=== PATIENT | female | born 2000 | race Caucasian/White ===

== ENCOUNTER 2020-10-28 07:33 | Emergency (ER) | payer OTHER, SELFPAY ==
[2020-10-28 08:24] LABS: Absolute Lymphocytes (CBC) 1.1 K/uL (0.7-4.9); Basophils % 0.3 % (0-1.3); Hematocrit 38.7 % (36.0-45.0); Lymphocytes % 19.7 % (15.3-44.8); MPV 10.2 fL (7.6-11.3); RBC Red Blood Cell Count 4.47 M/uL (3.86-4.86)
[2020-10-28 08:27] LABS: Urine Blood Negative (Negative); Urine Glucose Negative (Negative); Urine Protein Negative (Negative); Urine pH 7.5 (5.0-7.0)
[2020-10-28] MEDS ORDERED: NA CHLORIDE 0.9% 1,000 ML ONE (08:34)
[2020-10-28] MEDS ORDERED: LIDOCAINE VISCOUS 2% SOLN 15 ML UDC ONE (08:35)
[2020-10-28] MEDS ORDERED: MAGNES/ALUMIN/SIMET 30ML UCUP ONE (08:35)
[2020-10-28 08:53] LABS: BUN Blood Urea Nitrogen 13 mg/dL (7-18); Bicarbonate 25 mmol/L (21-32); Glucose Level 102 mg/dL (74-106); Potassium 4.4 mmol/L (3.5-5.1); Sodium Level 141 mmol/L (136-145); Troponin (Emerg Dept Use Only) < 0.02 ng/mL (0.0-0.045)
[2020-10-28] MEDS ORDERED: KETOROLAC 30 MG/ML INJ ONE (10:06)
--- NOTE | 2020-10-28 10:10 | RAD REPORT ---
EXAM DESCRIPTION: US - Abdomen Exam Limited - 10/28/2020 9:36 am CLINICAL HISTORY: RUQ abd pain COMPARISON: Abdomen Exam Limited dated 06/18/2017 FINDINGS: A 12 millimeter size gallstone is present remaining fixed at the neck of the gallbladder. No other stones or sludge seen. There is no wall thickening or pericholecystic fluid. No common duct stone or biliary tree dilatation identified. IMPRESSION: A 12 millimeter gallstone is present remaining fixed in the neck of the gallbladder. No other gallbladder or biliary tree finding.
--- NOTE | 2020-10-28 10:28 | EDPHYS ---
Physician Documentation [facility] Name: Susana Agarwal Age: 20 yrs Sex: Female : 2000 Arrival Date: 10/28/2020 Time: 07:37 Bed 8 Private MD: ED Physician Elaine Chaudhari HPI: 10/28 08:39 This 20 yrs old Female presents to ER via Ambulatory with complaints of Chest ma2 Pressure. 08:39 The patient or guardian reports chest pain that is located primarily in the anterior ma2 chest wall. Associated signs and symptoms: Pertinent negatives: diaphoresis, headache, lower extremity swelling. Severity of pain: At its worst the pain was mild in the emergency department the pain is unchanged. The patient has experienced similar episodes in the past. Historical: - Allergies: 07:56 Iodine; hb 07:57 No Known Allergies; ss - Home Meds: 07:57 None [Active]; ss - PMHx: 07:57 None; ss - PSHx: 07:56 eye surgery; hb 07:57 eye surgery x 4; ; ss - Immunization history:: Adult Immunizations up to date, Adult Immunizations up to date. - Social history:: Smoking status: Patient denies any tobacco usage or history of. - Family history:: not pertinent. ROS: 08:39 Constitutional: Negative for fever, chills, and weight loss. ma2 08:39 All other systems are negative. Exam: 08:39 Constitutional: This is a well developed, well nourished patient who is awake, alert, ma2 and in no acute distress. Chest/axilla: Normal chest wall appearance and motion. Nontender with no deformity. No lesions are appreciated. Cardiovascular: Regular rate and rhythm with a normal S1 and S2. No gallops, murmurs, or rubs. Normal PMI, no JVD. No pulse deficits. Respiratory: Lungs have equal breath sounds bilaterally, clear to auscultation and percussion. No rales, rhonchi or wheezes noted. No increased work of breathing, no retractions or nasal flaring. Abdomen/GI: Soft, non-tender, with normal bowel sounds. No distension or tympany. No guarding or rebound. No evidence of tenderness throughout. Back: No spinal tenderness. No costovertebral tenderness. Full range of motion. Skin: Warm, dry with normal turgor. Normal color with no rashes, no lesions, and no evidence of cellulitis. MS/ Extremity: Pulses equal, no cyanosis. Neurovascular intact. Full, normal range of motion. Neuro: Awake and alert, GCS 15, oriented to person, place, time, and situation. Cranial nerves II-XII grossly intact. Motor strength 5/5 in all extremities. Sensory grossly intact. Cerebellar exam normal. Normal gait. Vital Signs: 07:53 BP 116 / 67; Pulse 74; Resp 16; Temp 97.7(TE); Pulse Ox 98% on R/A; Pain 5/10; ss 08:04 BP 118 / 78 RA Sitting (auto/lg); Pulse 70; Resp 18; Pulse Ox 97% on R/A; tr6 08:04 BP 116 / 67 LA (auto/lg); tr6 09:51 BP 120 / 79; Pulse 56; Resp 18; Pulse Ox 100% on R/A; tr6 MDM: 07:44 Patient medically screened. ma2 08:39 Differential diagnosis: esophagitis, gastritis, gastroesophageal reflux disease (GERD), ma2 pancreatitis. 10:27 Data reviewed: vital signs, nurses notes. Counseling: I had a detailed discussion with ma2 the patient and/or guardian regarding: the historical points, exam findings, and any diagnostic results supporting the discharge/admit diagnosis, the presence of at least one elevated blood pressure reading (>120/80) during this emergency department visit, the need for outpatient follow up. 10/28 08:13 Order name: Basic Metabolic Panel; Complete Time: 09:21 [facility] 10/28 08:13 Order name: CBC with Diff; Complete Time: 08:45 [facility] 10/28 08:13 Order name: Troponin (emerg Dept Use Only); Complete Time: 09:21 [facility] 10/28 08:16 Order name: US Abdomen Limited; Complete Time: 10:26 [facility] 10/28 08:27 Order name: Urine Dipstick-Ancillary; Complete Time: 08:45 [facility] 10/28 08:33 Order name: Urine --Ancillary (enter results) bd 10/28 07:40 Order name: Urine Test (obtain specimen); Complete Time: 08:20 [facility] 10/28 07:40 Order name: Urine Dipstick-Ancillary (obtain specimen); Complete Time: 08:19 ma2 10/28 07:40 Order name: EKG - Nurse/Tech; Complete Time: 08:01 ma2 Administered Medications: 08:16 Drug: GI Cocktail without - (Maalox Suspension 30 ml, Lidocaine Liquid 2 % 15 tr6 ml) Route: PO; 08:42 Follow up: Response: Pain is unchanged, physician notified tr6 09:50 Drug: Ketorolac 30 mg Route: IVP; Site: right antecubital; tr6 11:31 Follow up: Response: Pain is unchanged, physician notified tr6 11:31 Not Given (Patient Refused): Ativan (LORazepam) 0.5 mg IVP once tr6 Disposition: 10/28/20 10:27 Discharged to Home. Impression: Cholelithiasis. - Condition is Stable. - Discharge Instructions: Cholelithiasis, [id number]. - Prescriptions for Diclofenac Sodium 75 mg Oral Tablet Sustained Release - take 1 tablet by ORAL route 2 times per day; 30 tablet. Zofran 4 mg Oral Tablet - take 1 tablet by ORAL route every 12 hours As needed; 20 tablet. Pepcid 20 mg Oral Tablet - take 1 tablet by ORAL route every 12 hours for 5 days; 10 tablet. - Medication Reconciliation Form, Thank You Letter, Antibiotic Education, Prescription Opioid Use form. - Follow up: Tu Salter; When: Tomorrow; Reason: If symptoms return, Continuance of care. Signatures: Dispatcher [facility] Jazmyne Baeza RN RN Shannen Cee RN RN Elaine Chaudhari MD MD [facility] Antonette Owen RN RN tr6 Corrections: (The following items were deleted from the chart) 11:34 10:27 10/28/2020 10:27 Discharged to Home. Impression: Cholelithiasis. Condition is tr6 Stable. Discharge Instructions: Cholelithiasis, [id number]. Prescriptions for Diclofenac Sodium 75 mg Oral Tablet Sustained Release - take 1 tablet by ORAL route 2 times per day; 30 tablet, Zofran 4 mg Oral Tablet - take 1 tablet by ORAL route every 12 hours As needed; 20 tablet, Pepcid 20 mg Oral Tablet - take 1 tablet by ORAL route every 12 hours for 5 days; 10 tablet. and Forms are Medication Reconciliation Form, Thank You Letter, Antibiotic Education, Prescription Opioid Use. Follow up: Tu Salter; When: Tomorrow; Reason: If symptoms return, Continuance of care. ma2
--- NOTE | 2020-10-28 10:28 | ER ---
Nurse's Notes [facility] Name: Susana Agarwal Age: 20 yrs Sex: Female : 2000 Arrival Date: 10/28/2020 Time: 07:37 Bed 8 Private MD: Diagnosis: Cholelithiasis Presentation: 10/28 07:44 Coronavirus screen: At this time, the client does not indicate any symptoms associated hb with coronavirus-19. Ebola Screen: No symptoms or risks identified at this time. Initial Sepsis Screen: Does the patient meet any 2 criteria? No. Patient's initial sepsis screen is negative. Does the patient have a suspected source of infection? No. Patient's initial sepsis screen is negative. Risk Assessment: Do you want to hurt yourself or someone else? Patient reports no desire to harm self or others. 07:44 Acuity: JAYDON 3 hb 07:44 Method Of Arrival: Ambulatory 07:53 Chief complaint: Patient states: "I woke up at 3 am with chest tightness and I can feel ss it in my back. I get lightheaded when I walk around or stand up." Denies cough. Coronavirus screen: Client denies travel out of the [place] in the last 14 days. Ebola Screen: Patient denies exposure to infectious person. Patient denies travel to an Ebola-affected area in the 21 days before illness onset. Initial Sepsis Screen: Does the patient meet any 2 criteria? No. Patient's initial sepsis screen is negative. Does the patient have a suspected source of infection? No. Patient's initial sepsis screen is negative. Risk Assessment: Do you want to hurt yourself or someone else? Patient reports no desire to harm self or others. Onset of symptoms was October 28, 2020 at 03:00. 07:53 Method Of Arrival: Ambulatory ss 07:53 Acuity: JAYDON 3 ss Historical: - Allergies: 07:56 Iodine; hb 07:57 No Known Allergies; ss - Home Meds: 07:57 None [Active]; ss - PMHx: 07:57 None; ss - PSHx: 07:56 eye surgery; hb 07:57 eye surgery x 4; ; ss - Immunization history:: Adult Immunizations up to date, Adult Immunizations up to date. - Social history:: Smoking status: Patient denies any tobacco usage or history of. - Family history:: not pertinent. Screenin:56 Abuse screen: Denies threats or abuse. Denies injuries from another. Nutritional hb screening: No deficits noted. Tuberculosis screening: No symptoms or risk factors identified. Fall Risk None identified. Assessment: 08:02 General: Appears in no apparent distress. comfortable, Behavior is calm, cooperative, tr6 appropriate for age. Pain: Complains of pain in midsternal chest tightness and pressure radiating to upper back Pain radiates to upper back Pain began suddenly. Neuro: No deficits noted. Cardiovascular: No deficits noted. Reports chest pain, nausea, Capillary refill < 3 seconds JVD is absent Patient's skin is warm and dry. Rhythm is regular. Respiratory: No deficits noted. GI: No deficits noted. Abdomen is round distended, Bowel sounds present X 4 quads. Abd is soft Abdomen is tender to palpation in RUQ and epigastric tenderness. : No deficits noted. EENT: Eyes hx of ptosis . Derm: No deficits noted. Musculoskeletal: No deficits noted. 08:19 Reassessment: pt OOB to bathroom without assistance. tr6 08:44 Reassessment: No changes from previously documented assessment. US at bedside. tr6 09:50 Reassessment: No changes from previously documented assessment. Patient and/or family tr6 updated on plan of care and expected duration. Pain level reassessed. Patient states symptoms have not improved. 10:53 Reassessment: No changes from previously documented assessment. Patient and/or family tr6 updated on plan of care and expected duration. Pain level reassessed. Patient states symptoms have not improved. Vital Signs: 07:53 BP 116 / 67; Pulse 74; Resp 16; Temp 97.7(TE); Pulse Ox 98% on R/A; Pain 5/10; ss 08:04 BP 118 / 78 RA Sitting (auto/lg); Pulse 70; Resp 18; Pulse Ox 97% on R/A; tr6 08:04 BP 116 / 67 LA (auto/lg); tr6 09:51 BP 120 / 79; Pulse 56; Resp 18; Pulse Ox 100% on R/A; tr6 ED Course: 07:37 Patient arrived in ED. mr 07:38 Elaine Chaudhari MD is Attending Physician. ma2 07:55 Antonette Owen, GEO is Primary Nurse. tr6 07:56 Triage completed. hb 07:56 Arm band placed on. hb 07:56 Patient has correct armband on for positive identification. Placed in gown. Bed in low hb position. Call light in reach. patternmaker plastics on. Pulse ox on. NIBP on. 07:56 Patient maintains SpO2 saturation greater than 95% on room air. hb 07:59 EKG done, by ED staff, reviewed by Elaine Chaudhari MD. Initial lab(s) drawn, by gabino espinal sent to lab. Inserted saline lock: 20 gauge in right antecubital area, using aseptic technique. Blood collected. 09:36 US Abdomen Limited In Process Unspecified. EDMS 10:27 Tu Salter MD is Referral Physician. ma2 11:32 No provider procedures requiring assistance completed. IV discontinued, intact, tr6 bleeding controlled, No redness/swelling at site. Pressure dressing applied. Administered Medications: 08:16 Drug: GI Cocktail without - (Maalox Suspension 30 ml, Lidocaine Liquid 2 % 15 tr6 ml) Route: PO; 08:42 Follow up: Response: Pain is unchanged, physician notified tr6 09:50 Drug: Ketorolac 30 mg Route: IVP; Site: right antecubital; tr6 11:31 Follow up: Response: Pain is unchanged, physician notified tr6 11:31 Not Given (Patient Refused): Ativan (LORazepam) 0.5 mg IVP once tr6 Outcome: 10:27 Discharge ordered by MD. ma2 11:33 Discharged to home ambulatory. tr6 11:33 Condition: unchanged 11:33 Discharge instructions given to patient, family, significant other, Instructed on discharge instructions, follow up and referral plans. no drinking with medication, safety practices, Demonstrated understanding of instructions, follow-up care, medications, Prescriptions given X 3. 11:34 Patient left the ED. tr6 Signatures: Dispatcher [facility] Yuval Susannah Jazmyne Kan, GEO GUARDADO Shannen Cee RN RN Bonifacio Cevallos Mohammad, MD MD ma2 Jackson, Kandis [id number] Antonette Owen RN RN tr6 Corrections: (The following items were deleted from the chart) 07:57 07:44 BP 116 / 67; Pulse 67bpm; Resp 20bpm; Pulse Ox 97% RA; Temp 97.8F; hb hb 08:12 08:02 GI: No deficits noted. tr6 tr6 08:20 07:55 Inserted saline lock: 20 gauge in right antecubital area, using aseptic oe technique. oe 08:20 07:55 Initial lab(s) drawn, by me, sent to lab. oe oe 08:20 08:00 EKG done, by ED staff, reviewed by Elaine Chaudhari MD oe oe
[2020-10-28 11:43] VITALS: TEMP 97.7
[2020-10-28 11:45] VITALS: BP 120/79; O2SAT 100
== END 2020-10-28 11:34 | disposition home or self-care (01) ==
LOC: ER 07:33
DX: K80.20 Calculus of gallbladder without cholecystitis without obstruction (principal); Z91.048 Other nonmedicinal substance allergy status
CPT/HCPCS: 36415; 76705; 80048; 81003; 81025; 84484; 85025; 93005; 96374; 99285; J7030

== ENCOUNTER 2020-11-16 07:54 | Day surgery (SDC) | payer OTHER ==
[2020-11-15 11:57] LABS: Absolute Lymphocytes (CBC) 1.3 K/uL (0.7-4.9); Basophils % 0.2 % (0-1.3); Hematocrit 40.6 % (36.0-45.0); Lymphocytes % 14.3 % (15.3-44.8); MPV 9.1 fL (7.6-11.3); RBC Red Blood Cell Count 4.73 M/uL (3.86-4.86)
[2020-11-15 12:46] LABS: ALT/SGPT 27 U/L (12-78); AST/SGOT 15 U/L (15-37); Albumin 3.7 g/dL (3.4-5.0); Alkaline Phosphatase 64 U/L (45-117); BUN Blood Urea Nitrogen 14 mg/dL (7-18); Bicarbonate 25 mmol/L (21-32); Bilirubin Total 0.3 mg/dL (0.2-1.0); Glucose Level 92 mg/dL (74-106); Potassium 3.9 mmol/L (3.5-5.1); Protein, Total 7.5 g/dL (6.4-8.2); Sodium Level 140 mmol/L (136-145)
[2020-11-16] MEDS: CEFOXITIN/SWI 2gm 2 GM/20 ML SYR IV ONE ×3 (11:02→11:30)
[2020-11-16] MEDS ORDERED: GLYCOPYRROLATE 0.2 MG/ML SYR ONE (11:22)
[2020-11-16] MEDS ORDERED: LIDOCAINE 2% MPF 5 ML VIAL ONE (11:22)
[2020-11-16] MEDS ORDERED: ROCURONIUM 50 MG/5 ML VIAL IV ONE (11:22)
[2020-11-16] MEDS ORDERED: FENTANYL CITR 250 MCG/5 ML ONE (11:22)
[2020-11-16] MEDS ORDERED: propofoL 200 MG/20 ML VIAL IV ONE ×2 (11:22→11:26)
[2020-11-16] MEDS ORDERED: MIDAZOLAM HCL 2 MG/2 ML INJ ONE (11:22)
[2020-11-16] MEDS ORDERED: ONDANSETRON 4 MG/2 ML VIAL ONE ×2 (11:23→12:59)
[2020-11-16] MEDS ORDERED: LIDOCAINE 1% MPF 5 ML VIAL ONE (11:26)
[2020-11-16] MEDS: BUPIVACAINE 0.25% PF 30 ML VIAL ONE ×2 (11:38→11:46)
[2020-11-16] MEDS: Ringers Lactate 1,000 ML IV ONE ×2 (12:16→12:22)
--- NOTE | 2020-11-16 12:18 | P.OP ---
Preoperative diagnosis: Cholecystitis with Cholelithiasis Postoperative diagnosis: Cholecystitis with Cholelithiasis Primary procedure: Laparoscopic Cholecystectomy Secondary procedure: ICG Cholangiography Anesthesia: GETA + Local Estimated blood loss: <10cc Specimen: gallbladder Findings: distended gallbladder Complications: None Transferred to: Recovery Room Condition: Good
[2020-11-16] MEDS: HYDROMORPHONE HCL 1 MG/ML INJ ONE ×4 (12:45→13:00)
[2020-11-16] MEDS ORDERED: MEPERIDINE HCL 25 MG/ML SYR ONE (12:54)
[2020-11-16] MEDS ORDERED: Ringers Lactate 1,000 ML IV ONE (12:59)
--- NOTE | 2020-11-16 13:00 | OP ---
Date of Procedure: 11/16/2020 Surgeon: Tu Salter MD, Preoperative Diagnosis: Cholelithiasis with cholecystitis. Postoperative Diagnosis: Cholelithiasis with cholecystitis. Procedures Performed: 1.Laparoscopic cholecystectomy. 2.ICG cholangiography. Intraoperative cholangiography performed with indocyanine green and SPY tech nology. Anesthesia: General endotracheal plus local with 0.25% Marcaine without epinephrine. Estimated Blood Loss: Less than 10 cc. Specimen: Gallbladder. Findings: Distended gallbladder. Complications: None. Disposition: The patient was transferred to recovery room in good condition. Procedure In Detail: After informed was obtained, the patient was brought to the operating room, pre pped and draped in the usual sterile fashion. After adequate anesthesia was achieved, supraumbilical was anesthetized with 0.25% Marcaine and sharply incised. A 5 mm 0-degree optical trocar was introd uced without evidence of complication. Insufflation was obtained to 15 mmHg. At this time, there wa s no injury to vital structures upon entering the abdomen. Two additional trocars were placed, 1 in the epigastrium, 1 in the right upper quadrant. All of these were similarly anesthetized and sharply incised. A 5 mm trocar was placed under direct visualization without evidence of complication. The umbilical trocar was then upsized to a 12 mm under direct vision without evidence of complication. The patient was positioned head up right-side up position. Ratcheted grasper was used to grasp the pa tient's gallbladder towards the patient's right shoulder. Dissection continued down the Gavino festus ch of the gallbladder. Did dissect the cystic duct and cystic artery. ICG cholangiography was perfo rmed at this point using SPY technology to confirm the anatomic landmarks which were verified at this point. The cystic duct and cystic artery were then encircled, skeletonized and doubly clipped on th e proximal side and singly on the distal side verifying the critical view of safety was obtained prio r to any resection at this point. After the critical view of safety was obtained at this point, the structures were ligated using Endo Marta. The gallbladder was removed from the hepatic fossa withou t evidence of complication and placed in EndoCatch bag, removed through the umbilical trocar and sent off for pathologic examination. The subhepatic space was copiously irrigated and the gallbladder fo ssa was copiously irrigated and suctioned out until completely clear. There was no spillage of bowel throughout the procedure. No bleeding at the end of procedure and no hemostatic maneuvers were requ ired. The patient was positioned back in neutral position. The umbilical trocar site was then close d using a Landon-Deepti suture passer with an 0 Vicryl for fascia with good approximation of tissue s. The abdomen was then completely desufflated under direct visualization without evidence of compli cation. Remaining trocars were removed. All skin incisions were copiously irrigated and closed with 4-0 Monocryl in a running fashion. Dermabond was placed over top. The patient tolerated the proced ure well without evidence of complication and transferred to PACU in good condition. All counts were correct at the end of the case. JULIEN/PANFILO Voice ID: [id number] Report ID: [id number]
[2020-11-16] MEDS ORDERED: PROMETHAZINE INJ 25 MG/ML AMP ONE (14:37)
[2020-11-16] MEDS ORDERED: HYDROCODONE/APAP 10/325 TAB ONE (15:31)
[2020-11-16 15:35] VITALS: BP 111/64; TEMP 97; O2SAT 98
== END 2020-11-16 15:40 | disposition home or self-care (01) ==
LOC: OR 07:54
PROVIDERS: ATTEND Surgery
PROC: BF03YZZ Plain Radiography of Gallbladder and Bile Ducts using Other Contrast (ICD-10-PCS; 2020-11-16)
PROC: 0FT44ZZ Resection of Gallbladder, Percutaneous Endoscopic Approach (ICD-10-PCS; principal; 2020-11-16 09:45)
DX: K80.10 Calculus of gallbladder with chronic cholecystitis without obstruction (principal); Z20.822 Contact with and (suspected) exposure to COVID-19
CPT/HCPCS: 85025; 36415; 84703; 88304; 80053; 47563; U0003; J2704; J2550; J2250; J3010; J2175; J1170 ×2; J0694; J7120 ×2; J2405 ×2

== ENCOUNTER 2023-01-22 11:27 | Emergency (ER) | payer OTHER ==
--- OUTSIDE RECORDS SUMMARY | 2023-01-22 11:32 | XMS REPORT | Continuity of Care Document ---
:2000 Author Organization [facility] t Address [address] [place] [address] Care Team Providers Name Role Phone Shayy Bernardo Primary Care Physician [phone] SERA AVILA Attending Clinician Unavailable Sera Granados Attending Clinician Preston Gates DO Attending Clinician SHAYY LOW Attending Clinician Unavailable Shayy Bernardo Attending Clinician [phone] Doctor Unassigned, [place] Attending Clinician Unavailable Harman Malagon Attending Clinician HARMAN GARCIA Attending Clinician Unavailable Martin Barnes MD Attending Clinician Ultrasound, [facility] Attending Clinician Unavailable Germain Nash MD Attending Clinician Lab, AnnaRmchkandi Attending Clinician Unavailable Kal Syed MD Attending Clinician Rona Foley Attending Clinician KAL SYED Admitting Clinician Unavailable Martin Barnes MD Admitting Clinician Kal Syed MD Admitting Clinician Payers Payer Name Policy Type Policy Number Effective Date Expiration Date [facility] [id number] 2019 [facility] MEDICAID 00:00:00 Problems Condition Condition Condition Status Onset Resolution Last Treating Co mments Source Name Details Category Date Date Treatment Clinician Date Heavy Heavy Disease Active 2020- Univers menstrual menstrual 0-06 ity of bleeding bleeding 00:00: [place] 00 Medical Branch Encounter Encounter Disease Active 2020-0 Uni vers for for 8-20 ity of surveillan surveillan 00[place] ce of ce of 00 Medical other other Branch contracept contracept edwardo edwardo IUD IUD Disease Active 2020-0 Univers (intrauter (intrauter 8-20 it y of ine ine 00:00: [place] device) in device) in [address] Branch Encounter Encounter Disease Active 2020-0 Uni vers for IUD for IUD 8-20 ity of removal removal 00:00: [place] 00 Medical Branch Lactating Lactating Disease Active 2020-0 Uni vers mother mother 7-09 ity of 00:00: [place] 00 Medical Branch Tobacco Tobacco Disease Active 2020-0 Univers use use 7-09 ity of disorder disorder 00:00: [place] 00 [facility] Branch 38 weeks 38 weeks Disease Active 2020-0 Unive rs gestation gestation 5-24 ity of of of 00:00: [place] 00 [facility] Leakage of Leakage of Disease Active 2020-0 U nivers amniotic amniotic 5-24 ity of fluid fluid 00:00: [place] 00 [facility] Branch BMI BMI Disease Active 2020-0 Univers 33.0-33.9, 33.0-33.9, 4-15 it y of adult adult 00:00: [place] 00 [facility] Branch Elevated Elevated Disease Active 2020-0 Unive rs blood blood 4-15 ity of pressure pressure 00:00: [place] reading reading 00 [facility] Branch Anemia of Anemia of Disease Active 2020-0 Uni vers mother in mother in 3-03 ity of , , 00:00[place] antepartum antepartum 00 [facility] Branch Pain of Pain of Disease Active 2020-0 Univers round round 2-13 ity of ligament ligament 00:00: [place] during during 00 Medical Bran ch Back pain Back pain Disease Active 2020-0 Uni vers affecting affecting 1-02 [place] of [place] [facility] Supervisio Supervisio Disease Active 2019- U nivers n of n of 0-09 ity of high-risk high-risk 00:[place] 00 [place] Branch Multiparit Multiparit Disease Active 2018-05 U nivers y y 0-09 ity of 00:00: [place] Medical Branch History of History of Disease Active 2018-05 Overview : Univers 0-09 Primary c ity of section section 00:00: section [place] 00 01/2016 Medical see Branch scanned records Tobacco Tobacco Disease Active 2018-05 Overview: Univ ers use in use in 0-09 Formattin ity of 00:00: g of this [place] 00 note Medical might be Branch different from the original. Reports quit on 02/14/19 History of History of Disease Active 2018-05 U nivers pre-eclamp pre-eclamp 0-09 it y of savita savita 00:00: [place] Medical Branch Ptosis of Ptosis of Disease Active 2018-05 Uni vers eyelid, eyelid, 0-09 ity of right right 00:00: Medical Branch Class 1 Class 1 Disease Active 2018-05 Univers obesity obesity 0-09 ity of with body with body 00:00[place] mass index mass index 00 Me dical (BMI) of (BMI) of Branch 33.0 to 33.0 to 33.9 in 33.9 in adult, adult, unspecifie unspecifie d obesity d obesity type, type, unspecifie unspecifie d whether d whether serious serious comorbidit comorbidit y present y present Screening Screening Disease Active Uni vers examinatio examinatio 524 it y of n for STD n for STD 00:00: [place] (sexually (sexually 00 [facility] transmitte transmitte Br anch d disease) d disease) Allergies, Adverse Reactions, Alerts Allergy Allergy Status Severity Reaction(s) Onset Inactive Treating Comm ents Source Name Type Date Date Clinician Iodine Propensi Active Shortness of 2016-05 hives [place] And ty to Breath 2-27 ity of Iodide adverse 00:00: [place] Containi reaction 00 Medica l ng s Branch Products IODINE Drug Active High SOB 2016-05 Univers AND Class 2-27 ity of IODIDE 00:00: [place] CONTAINI 00 Medical NG Branch PRODUCTS Social History Social Habit Start Date Stop Date Quantity Comments Source ASSERTION 2019-01-22 University of 00:00:00 [facility] Exposure to Not sure University of SARS-CoV-2 (event) [facility] Gender identity Universit y of [facility] Sexual orientation Univer sity of [facility] Alcohol intake 2023-01-17 2023-01-17 Current drinker Unive rsity of 00:00:00 00:00:00 of alcohol [place] Medical (finding) [place] Tobacco use and 2019-11-17 2019-11-17 Smokeless tobacco Un iversity of exposure 00:00:00 00:00:00 non-user [facility] History of Social 2019-10-25 2019-10-25 Univers ity of function 00:00:00 00:00:00 [facility] History of tobacco 2019-02-14 Cigarette Smoker University of use 00:00:00 [facility] Alcohol Comment 2018-09-28 2018-09-28 occasional Universit y of 00:00:00 00:00:00 [facility] Tobacco Comment 2018-09-28 2018-09-28 vape Universit y of 00:00:00 00:00:00 [facility] Sex Assigned At [birth year] Universit y of 00:00:00 00:00:00 [facility] Smoking Status Start Date Stop Date Source Occasional tobacco 2019-11-17 00:00:00 [facility]it y of [place] smoker Medical Branch Former smoker 2019-10-25 00:00:00 2019-10-25 University o f [place] 00:00:00 [facility] Medications Ordered Filled Start Stop Current Ordering Indication Dosage Frequency Signature Comments Components Source Medication Medication Date Date Medication? Clinician (SIG) Name Name dexamethaso 2022- No 10mg 10 mg, Uni vers ne sod phos 01-17 Oral, ity of PF 22:15: 21:32 ONCE, 1 [place] injection 00 :00 dose, On Medica l 10 mg 01/17/23 Branch at 1715, 1 mL hydrOXYzine Yes [id number] 25mg Take 1 Univers 25 mg 01-17 tablet by ity of tablet 00:00: mouth [place] 00 every 6 Medical (six) Branch hours as needed for Itching. NUVARING Yes [id number] INSERT 1 Univers 0.12-0.015 1-03 RING ity of mg/24 hr 00:00: VAGINALLY [place] vaginal 00 1 TIME Medical insert EVERY Branch MONTH. LEAVE IN PLACE FOR 3 CONSECUTIV E WEEKS, THEN REMOVE FOR 1 WEEK ELURYNG Yes [id number] INSERT 1 U nivers 0.12-0.015 1-03 RING ity of mg/24 hr 00:00: VAGINALLY [place] vaginal 00 1 TIME Medical insert EVERY Branch MONTH. LEAVE IN PLACE FOR 3 CONSECUTIV E WEEKS, THEN REMOVE FOR 1 WEEK ELURYNG 2020- Yes [id number] INSERT 1 U nivers 0.12-0.015 1-03 RING ity of mg/24 hr 00:00: VAGINALLY [place] vaginal 00 1 TIME Medical insert EVERY Branch MONTH. LEAVE IN PLACE FOR 3 CONSECUTIV E WEEKS, THEN REMOVE FOR 1 WEEK ELURYNG Yes [id number] INSERT 1 U nivers 0.12-0.015 1-03 RING ity of mg/24 hr 00:00: VAGINALLY [place] vaginal 00 1 TIME Medical insert EVERY Branch MONTH. LEAVE IN PLACE FOR 3 CONSECUTIV E WEEKS, THEN REMOVE FOR 1 WEEK NUVARING 2020- No [id number] INSERT 1 Univers 0.12-0.015 1-03 01-03 RING ity of mg/24 hr 00:00: 00:00 VAGINALLY [place] vaginal 00 :00 1 TIME Medical insert EVERY Branch MONTH. LEAVE IN PLACE FOR 3 CONSECUTIV E WEEKS, THEN REMOVE FOR 1 WEEK NUVARING 2019-05 Yes [id number] 1{each} Insert 1 Univers (NUVARING) 0-13 Each into ity of 0.12-0.015 00:00: vagina [place] mg/24 hr 00 once every Medic al vaginal month. Branch insert Insert vaginally and leave in place for 3 consecutiv e weeks, then remove for 1 week. NUVARING 2019-05 Yes [id number] 1{each} Insert 1 Univers (NUVARING) 0-13 Each into ity of 0.12-0.015 00:00: vagina [place] mg/24 hr 00 once every Medic al vaginal month. Branch insert Insert vaginally and leave in place for 3 consecutiv e weeks, then remove for 1 week. NUVARING 2019-05 Yes [id number] 1{each} Insert 1 Univers (NUVARING) 0-13 Each into ity of 0.12-0.015 00:00: vagina [place] mg/24 hr 00 once every Medic al vaginal month. Branch insert Insert vaginally and leave in place for 3 consecutiv e weeks, then remove for 1 week. NUVARING 2019-05 Yes [id number] 1{each} Insert 1 Univers (NUVARING) 0-13 Each into ity of 0.12-0.015 00:00: vagina [place] mg/24 hr 00 once every Medic al vaginal month. Branch insert Insert vaginally and leave in place for 3 consecutiv e weeks, then remove for 1 week. NUVARING 2019-05 Yes [id number] 1{each} Insert 1 Univers (NUVARING) 0-13 Each into ity of 0.12-0.015 00:00: vagina [place] mg/24 hr 00 once every Medic al vaginal month. Branch insert Insert vaginally and leave in place for 3 consecutiv e weeks, then remove for 1 week. NUVARING 2019-05 Yes [id number] 1{each} Insert 1 Univers (NUVARING) 0-13 Each into ity of 0.12-0.015 00:00: vagina [place] mg/24 hr 00 once every Medic al vaginal month. Branch insert Insert vaginally and leave in place for 3 consecutiv e weeks, then remove for 1 week. NUVARING 2019-05 No [id number] 1{each} Insert 1 Univers (NUVARING) 0-13 01-03 Each into ity of 0.12-0.015 00:00: 00:00 vagina [place] mg/24 hr 00 :00 once every Medic al vaginal month. Branch insert Insert vaginally and leave in place for 3 consecutiv e weeks, then remove for 1 week. ibuprofen 2019-05- No [id number] 800mg Take 1 Univers 800 mg 0-06 10-12 tablet by ity of tablet 00:00: 04:59 mouth 3 [place] 00 :00 (three) Medical times Branch daily with meals for 5 days. ibuprofen 2019-05- No [id number] 800mg Take 1 Univers 800 mg 0-06 10-12 tablet by ity of tablet 00:00: 04:59 mouth 3 [place] 00 :00 (three) Medical times Branch daily with meals for 5 days. copper 2019- No [id number] 1{IUD} Uni vers (PARAGARD T 7 07-09 ity of 380A) IUD 1 16:00: 14:52 [place] Intra 00 :00 Medical Uterine Branch Device copper 2020-0 2020- No [id number] 1{IUD} 1 Intra Univers (PARAGARD T 11-16- Uterine ity of 380A) IUD 1 16:00: 14:52 [place], [place] Intra 00 :00 Intrauteri Medical Uterine ne, ONCE, Branch Device 1 dose, Lisa 720 at 1100, Routine copper 2020-0 2020- No [id number] 1{IUD} Uni vers (PARAGARD T 11-16- ity of 380A) IUD 1 16:00: 14:52 [place] Intra 00 :00 Medical Uterine Branch Device copper 2020-0 2020- No [id number] 1{IUD} 1 Intra Univers (PARAGARD T 11-16 Uterine ity of 380A) IUD 1 16:00: 14:52 [place], [place] Intra 00 :00 Intrauteri Medical Uterine ne, ONCE, Branch Device 1 dose, Lisa 11/17/19 at 1100, Routine copper 2020-0 2020- No [id number] 1{IUD} Uni vers (PARAGARD T 11-16 ity of 380A) IUD 1 16:00: 14:52 [place] Intra 00 :00 Medical Uterine Branch Device copper 2020-0 2020- No [id number] 1{IUD} 1 Intra Univers (PARAGARD T 11-16 Uterine ity of 380A) IUD 1 16:00: 14:52 [place], [place] Intra 00 :00 Intrauteri Medical Uterine ne, ONCE, Branch Device 1 dose, Lisa 720 at 1100, Routine copper 2020-0 2020- No [id number] 1{IUD} Uni vers (PARAGARD T 11-16 ity of 380A) IUD 1 16:00: 14:52 [place] Intra 00 :00 Medical Uterine Branch Device copper 2020-0 2020- No [id number] 1{IUD} 1 Intra Univers (PARAGARD T 11-16- Uterine ity of 380A) IUD 1 16:00: 14:52 [place], [place] Intra 00 :00 Intrauteri Medical Uterine ne, ONCE, Branch Device 1 dose, Lisa 720 at 1100, Routine copper 2020-0 2020- No [id number] 1{IUD} Uni vers (PARAGARD T 7- 07-09 ity of 380A) IUD 1 16:00: 14:52 [place] Intra 00 :00 Medical Uterine Branch Device copper 2020-0 2020- No [id number] 1{IUD} 1 Intra Univers (PARAGARD T 7- 07-09 Uterine ity of 380A) IUD 1 16:00: 14:52 Device, [place] Intra 00 :00 Intrauteri Medical Uterine ne, ONCE, Branch Device 1 dose, Lisa 11/17/19 at 1100, Routine copper 2020-0 2020- No [id number] 1{IUD} Uni vers (PARAGARD T 7- 07-09 ity of 380A) IUD 1 16:00: 14:52 [place] Intra 00 :00 Medical Uterine Branch Device copper 2019-0 2020- No [id number] 1{IUD} 1 Intra Univers (PARAGARD T 7 07-09 Uterine ity of 380A) IUD 1 16:00: 14:52 Device, [place] Intra 00 :00 Intrauteri Medical Uterine ne, ONCE, Branch Device 1 dose, Lisa 11/17/19 at 1100, Routine copper 0 2020- No [id number] 1{IUD} Uni vers (PARAGARD T 7 07-09 ity of 380A) IUD 1 16:00: 14:52 [place] Intra 00 :00 Medical Uterine Branch Device copper 2020-0 2020- No [id number] 1{IUD} 1 Intra Univers (PARAGARD T 7- 07-09 Uterine ity of 380A) IUD 1 16:00: 14:52 Device, [place] Intra 00 :00 Intrauteri Medical Uterine ne, ONCE, Branch Device 1 dose, Lisa 11/17/19 at 1100, Routine copper 2020-0 2020- No [id number] 1{IUD} Uni vers (PARAGARD T 7- 07-09 ity of 380A) IUD 1 16:00: 14:52 [place] Intra 00 :00 Medical Uterine Branch Device copper 2020-0 2020- No [id number] 1{IUD} 1 Intra Univers (PARAGARD T 7- 07-09 Uterine ity of 380A) IUD 1 16:00: 14:52 Device, [place] Intra 00 :00 Intrauteri Medical Uterine ne, ONCE, [place] Device 1 dose, Lisa 11/17/19 at 1100, Routine ibuprofen 2020-0 Yes 600mg 600 mg, Univ ers (IBU) 5-25 Oral, Q6H, ity of tablet 600 11:00: First dose [place] mg 00 on Mon Medical 10/03/19 at Branch 0600, Until Discontinu ed, Routine rho(D) 2020-0 Yes 300ug 300 mcg, Univer s immune 5-25 Intramuscu ity of globulin 10:04: lar, ONCE, [place] as (RHOGAM) 47 For 1 Medical syringe 300 dose, Branch mcg Conditiona l, Routine human 2020-0 Yes .5mL 0.5 mL, Univers papillomav 5-25 Intramuscu ity of vac,9-francesca(P 10:04: lar, [place] F) 41 ONCE-PRIOR Medical (GARDASIL-9 TO [place] ) syringe DISCHARGE, 0.5 mL 1 dose, Starting 10/03/19 at 0504, Until Discontinu ed, Routine, Give vaccine prior to discharge HYDROcodone 2020-0 Yes 2{tbl} 2 tablet, Univers -acetaminop 5-25 Oral, ity of hen (NORCO 10:04: Q6HPRN, [place] 5) 5-325 mg 41 Starting Medi markus tablet 2 Mon Branch tablet 10/03/19 at 0504, Until Discontinu ed, Routine, Pain (scale 7-10) HYDROcodone 2020-0 Yes 1{tbl} 1 tablet, Univers -acetaminop 5-25 Oral, ity of hen (NORCO 10:04: Q6HPRN, [place] 5) 5-325 mg 41 Starting Medi markus tablet 1 Mon Branch tablet 10/03/19 at 0504, Until Discontinu ed, Routine, Pain (scale 4-6) diphenhydrA 2020-0 Yes 25mg 25 mg, IV U nivers MINE-0.9 % 5-25 Piggyback, ity of sod.chlr 10:04: Q6HPRN, 1 [place] (BENADRYL) 41 dose, Medical 25 mg/50 mL Starting Bran ch piggyback Mon 25 mg 10/03/19 at 0504, Until Discontinu ed, 50 mL diphenhydrA 2020-0 Yes 25mg 25 mg, Univ ers MINE 5-25 Oral, ity of (BENADRYL) 10:04: Q6HPRN, [place] tablet 25 41 Starting Medica l mg [facility] 10/03/19 at 0504, Until Discontinu ed, Routine, Sleep, Itching ondansetron 2020-0 Yes 4mg 4 mg, Slow Univers (ZOFRAN 5-25 IV Push, ity of (PF)) 10:04: Q8HPRN, [place] injection 4 41 Starting Medi markus mg [facility] 10/03/19 at 0504, Until Discontinu ed, Routine, Nausea and Vomiting (N/V) simethicone 2020-0 Yes 160mg 160 mg, Un l[place] (GAS RELIEF 5-25 Oral, ity of (SIMETHICON 10:04: PC+HSPRN, [place] E)) 41 Starting Medical chewable [facility] tablet 160 10/03/19 at mg 0504, Until Discontinu ed, Routine, Gas docusate 2020-0 Yes 240mg 240 mg, Unive rs calcium 5-25 Oral, ity of (SURFAK) 10:04: QDAILYPRN, [place] capsule 240 41 Starting Medi markus mg [facility] 10/03/19 at 0504, Until Discontinu ed, Routine, Constipati on magnesium 2020-0 Yes 30mL 30 mL, Univer s hydroxide 5-25 Oral, ity of (MILK OF 10:04: QDAILYPRN, [place] MAGNESIA) 41 Starting Medica l 400 mg/5 mL [facility] suspension 10/03/19 at 30 mL 0504, Until Discontinu ed, Routine, Constipati on bisacodyL 2020-0 Yes 10mg 10 mg, Univer s (DULCOLAX) 5-25 Rectal, ity of suppository 10:04: QDAILYPRN, [place] 10 mg 40 Starting Medical [facility] 10/03/19 at 0504, Until Discontinu ed, Routine, Constipati on naloxone 2020-0 2020- No .4mg 0.4 mg, Unive rs (NARCAN) 5- 05-27 Slow IV ity of injection 09:08: 09:07 Push, PRN [place] 0.4 mg 29 :29 - SEE Medical INSTRUCTIO Branch NS, Starting [facility] 10/03/19 at 0408, Until Thu10/05/19 at 0407, Routine, Analgesia Recovery, PACU ketorolac 2019-2019- No 30mg 30 mg, Unive rs (TORADOL) 10-02- Slow IV ity of injection 09:08: 09:13 Push, PRN, [place] 30 mg 29 :00 1 dose, Medical Starting Branch 10/03/19 at 0408, Until 10/03/19 at 0413, Routine, Pain (scale 7-10), PACU
Fa culty member approving Restricted medication : MIRTHA TESFAYE acetaminoph 2019- No 650mg 650 mg, U nivers en 10-02 Oral, ity of (TYLENOL) 04:15: 04:36 ONCE, 1 [place] tablet 650 00 :00 dose, Sun Medi markus mg 10/02/19 at Branch 2315, Routine lactated 2019- No 1000mL at 125 Univ ers ringers IV 10-02 05-25 mL/hr, ity of infusion 04:15: 10:04 1,000 mL, [place] 1,000 mL 00 :48 IV Medical Infusion, Branch CONTINUOUS , Starting 10/02/19 at 2315, Until Thu10/03/19 at 0504, Routine azithromyci 2019- No 500mg 500 mg, IV Univers n 10-02 05-25 Piggyback, ity of (ZITHROMAX) 04:06: 07:15 O.R. [place] 500 mg in 31 :00 HOLDING Medical NaCl 0.9% ONCE, 1 Branch (NS) 250 mL dose, VIAL-MATE Starting IV Sun piggyback 10/02/19 at 2306, Until Thu10/03/19 at 0215, 250 mL
Reas on for Anti-Infec tive: Surgical Prophylaxi s
Surgi markus Prophylaxi s: OPERATIONAL COMMUNICATION CHIEF
Duration of therapy: within 24 hours of surgery ceFAZolin 2019-2019- No 2000mg 2 g (2,000 Univers in dextrose 5-25 05-25 mg), IV ity of (iso-os) 03:59: 04:33 [place], [place] (ANCEF) 2 04 :00 O.R. Medical gram/100 mL HOLDING Branc h Piggyback 2 ONCE, 1 g dose, Starting 10/02/19 at 2259, Until Discontinu ed, 100 mL
Reas on for Anti-Infec tive: Surgical Prophylaxi s
Surgi markus Prophylaxi s: OPERATIONAL COMMUNICATION CHIEF
Duration of therapy: within 24 hours of surgery sodium 2020-0 2020- No 30mL 30 mL, Univers citrate-cit 5-25 05-25 Oral, ity of mago acid 03:59: 04:36 PRE-PROCED [place] (BICITRA) 04 :00 URE ONCE, Medic al 500-334 1 dose, Branch mg/5 mL Starting solution 30 Sun mL 10/02/19 at 2259, Until 10/04/19 at 2359, Routine, Surgery/Pr ocedure docusate 2019-0 Yes [id number] 240mg Take 1 U nivers calcium 240 5-25 capsule by it y of mg capsule 00:00: mouth once [place] 00 daily as Medical needed for Branch Constipati on. ferrous 2019-0 Yes [id number] 325mg Take 1 Un [place] sulfate 325 5-25 tablet by ity of mg (65 mg 00:00: mouth 2 [place] iron) 00 (two) Medical tablet times Branch daily. ibuprofen 2019-0 Yes [id number] 600mg Take 1 Univers 600 mg 5-25 tablet by ity of tablet 00:00: mouth [place] 00 every 6 Medical (six) Branch hours as needed (Pain). Take with food or milk. HYDROcodone 2019-0 Yes [id number] 1{tbl} Take 1 Univers -acetaminop 5-25 tablet by ity of hen 5-325 00:00: mouth [place] mg tablet 00 every 6 Medical (six) Branch hours as needed for Pain (scale 7-10). Do not exceed 3 grams of acetaminop hen in 24h docusate 2019-0 Yes [id number] 240mg Take 1 U nivers calcium 240 5-25 capsule by it y of mg capsule 00:00: mouth once [place] 00 daily as Medical needed for Branch Constipati on. ferrous 2020-0 Yes [id number] 325mg Take 1 [place] sulfate 325 5-25 tablet by ity of mg (65 mg 00:00: mouth 2 [place] iron) 00 (two) Medical tablet times Branch daily. ibuprofen Yes [id number] 600mg Take 1 Univers 600 mg 5-25 tablet by ity of tablet 00:00: mouth [place] 00 every 6 Medical (six) Branch hours as needed (Pain). Take with food or milk. HYDROcodone Yes [id number] 1{tbl} Take 1 Univers -acetaminop 5-25 tablet by ity of hen 5-325 00:00: mouth [place] mg tablet 00 every 6 Medical (six) Branch hours as needed for Pain (scale 7-10). Do not exceed 3 grams of acetaminop hen in 24h docusate 2019- No [id number] 240mg Take 1 Univers calcium 240 5-25 07-09 capsule by i ty of mg capsule 00:00: 00:00 mouth once [place] 00 :00 daily as Medical needed for Branch Constipati on. ferrous No [id number] 325mg Take 1 U nivers sulfate 325 5-25 07-09 tablet by it y of mg (65 mg 00:00: 00:00 mouth 2 [place] iron) 00 :00 (two) Medical tablet times Branch daily. ibuprofen No [id number] 600mg Take 1 Univers 600 mg 5-25 07-09 tablet by ity of tablet 00:00: 00:00 mouth [place] 00 :00 every 6 Medical (six) Branch hours as needed (Pain). Take with food or milk. HYDROcodone No [id number] 1{tbl} Take 1 Univers -acetaminop 5-25 07-09 tablet by it y of hen 5-325 00:00: 00:00 mouth [place] mg tablet 00 :00 every 6 Medical (six) Branch hours as needed for Pain (scale 7-10). Do not exceed 3 grams of acetaminop hen in 24h docusate 2019- No [id number] 240mg Take 1 Univers calcium 240 5-25 07-09 capsule by i ty of mg capsule 00:00: 00:00 mouth once [place] 00 :00 daily as Medical needed for Branch Constipati on. ferrous 2019- No [id number] 325mg Take 1 U nivers sulfate 325 5-25 07-09 tablet by it y of mg (65 mg 00:00: 00:00 mouth 2 [place] iron) 00 :00 (two) Medical tablet times Branch daily. ibuprofen 2019- No [id number] 600mg Take 1 Univers 600 mg 5-25 07-09 tablet by ity of tablet 00:00: 00:00 mouth [place] 00 :00 every 6 Medical (six) Branch hours as needed (Pain). Take with food or milk. HYDROcodone 2019- No [id number] 1{tbl} Take 1 Univers -acetaminop 5-25 07-09 tablet by it y of hen 5-325 00:00: 00:00 mouth [place] mg tablet 00 :00 every 6 Medical (six) Branch hours as needed for Pain (scale 7-10). Do not exceed 3 grams of acetaminop hen in 24h docusate No [id number] 240mg Take 1 Univers calcium 240 5-25 07-09 capsule by i ty of mg capsule 00:00: 00:00 mouth once [place] 00 :00 daily as Medical needed for Branch Constipati on. ferrous No [id number] 325mg Take 1 U nivers sulfate 325 5-25 07-09 tablet by it y of mg (65 mg 00:00: 00:00 mouth 2 [place] iron) 00 :00 (two) Medical tablet times Branch daily. ibuprofen No [id number] 600mg Take 1 Univers 600 mg 5-25 07-09 tablet by ity of tablet 00:00: 00:00 mouth [place] 00 :00 every 6 Medical (six) Branch hours as needed (Pain). Take with food or milk. HYDROcodone No [id number] 1{tbl} Take 1 Univers -acetaminop 5-25 07-09 tablet by it y of hen 5-325 00:00: 00:00 mouth [place] mg tablet 00 :00 every 6 Medical (six) Branch hours as needed for Pain (scale 7-10). Do not exceed 3 grams of acetaminop hen in 24h docusate 2019- No [id number] 240mg Take 1 Univers calcium 240 5-25 07-09 capsule by i ty of mg capsule 00:00: 00:00 mouth once [place] 00 :00 daily as Medical needed for Branch Constipati on. ferrous No [id number] 325mg Take 1 U nivers sulfate 325 5-25 07-09 tablet by it y of mg (65 mg 00:00: 00:00 mouth 2 [place] iron) 00 :00 (two) Medical tablet times Branch daily. ibuprofen No [id number] 600mg Take 1 Univers 600 mg 5-25 07-09 tablet by ity of tablet 00:00: 00:00 mouth [place] 00 :00 every 6 Medical (six) Branch hours as needed (Pain). Take with food or milk. HYDROcodone No [id number] 1{tbl} Take 1 Univers -acetaminop 5-25 07-09 tablet by it y of hen 5-325 00:00: 00:00 mouth [place] mg tablet 00 :00 every 6 Medical (six) Branch hours as needed for Pain (scale 7-10). Do not exceed 3 grams of acetaminop hen in 24h docusate No [id number] 240mg Take 1 Univers calcium 240 5-25 07-09 capsule by i ty of mg capsule 00:00: 00:00 mouth once [place] 00 :00 daily as Medical needed for Branch Constipati on. ferrous [id number] 325mg Take 1 U nivers sulfate 325 5-25 07-09 tablet by it y of mg (65 mg 00:00: 00:00 mouth 2 [place] iron) 00 :00 (two) Medical tablet times Branch daily. ibuprofen [id number] 600mg Take 1 Univers 600 mg 5-25 07-09 tablet by ity of tablet 00:00: 00:00 mouth [place] 00 :00 every 6 Medical (six) Branch hours as needed (Pain). Take with food or milk. HYDROcodone No [id number] 1{tbl} Take 1 [facility] -acetaminop 5-25 07-09 tablet by it y of hen 5-325 00:00: 00:00 mouth [place] mg tablet 00 :00 every 6 Medical (six) Branch hours as needed for Pain (scale 7-10). Do not exceed 3 grams of acetaminop hen in 24h docusate No [id number] 240mg Take 1 [facility] calcium 240 5-25 07-09 capsule by i ty of mg capsule 00:00: 00:00 mouth once [place] 00 :00 daily as Medical needed for Branch Constipati on. ferrous No [id number] 325mg Take 1 [facility] sulfate 325 5-25 07-09 tablet by it y of mg (65 mg 00:00: 00:00 [place] 00 :00 (two) Medical tablet times Branch daily. ibuprofen No [id number] 600mg Take 1 [facility] 600 mg 5-25 07-09 tablet by ity of tablet 00:00: 00:00 mouth [place] 00 :00 every 6 Medical (six) Branch hours as needed (Pain). Take with food or milk. HYDROcodone No [id number] 1{tbl} Take 1 [facility] -acetaminop 5-25 07-09 tablet by it y of hen 5-325 00:00: 00:00 mouth [place] mg tablet 00 :00 every 6 Medical (six) Branch hours as needed for Pain (scale 7-10). Do not exceed 3 grams of acetaminop hen in 24h docusate No [id number] 240mg Take 1 [facility] calcium 240 5-25 07-09 capsule by i ty of mg capsule 00:00: 00:00 mouth once [place] 00 :00 daily as Medical needed for Branch Constipati on. ferrous No [id number] 325mg Take 1 [facility] nivers sulfate 325 5-25 07-09 tablet by it y of mg (65 mg 00:00: 00:00 [place] 00 :00 (two) Medical tablet times Branch daily. ibuprofen [id number] 600mg Take 1 [facility] 600 mg 5-25 07-09 tablet by ity of tablet 00:00: 00:00 mouth [place] 00 :00 every 6 Medical (six) Branch hours as needed (Pain). Take with food or milk. HYDROcodone No [id number] 1{tbl} Take 1 [facility] -acetaminop 5-25 07-09 tablet by it y of hen 5-325 00:00: 00:00 mouth [place] mg tablet 00 :00 every 6 Medical (six) Branch hours as needed for Pain (scale 7-10). Do not exceed 3 grams of acetaminop hen in 24h docusate No [id number] 240mg Take 1 [facility] calcium 240 5-25 07-09 capsule by i ty of mg capsule 00:00: 00:00 mouth once [place] 00 :00 daily as Medical needed for Branch Constipati on. ferrous 2019- 2020- No [id number] 325mg Take 1 [facility] n[facility] sulfate 325 5-25 -09 tablet by it y of mg (65 mg 00:00: 00:00 mouth [place] 00 :00 (two) Medical tablet times Branch daily. ibuprofen 2019- No [id number] 600mg Take 1 [facility] 600 mg 5-25 -09 tablet by ity of tablet 00:00: 00:00 mouth [place] 00 :00 every 6 Medical (six) Branch hours as needed (Pain). Take with food or milk. HYDROcodone 2019- No [id number] 1{tbl} Take 1 [facility] -acetaminop 5-25 -09 tablet by it y of hen 5-325 00:00: 00:00 mouth [place] mg tablet 00 :00 every 6 Medical (six) Branch hours as needed for Pain (scale 7-10). Do not exceed 3 grams of acetaminop hen in 24h ascorbic 2020-0 Yes [id number] 500mg Take 1 [facility] acid, 5-06 tablet by [facility] vitamin C, 00:00: mouth [place] 500 mg 00 (three) Medical tablet times Branch daily. ferrous 2020-0 Yes [id number] 325mg Take 1 [facility] [place] sulfate 325 5-06 tablet by ity of mg (65 mg 00:00: mouth 2 [place] iron) 00 (two) Medical tablet times Branch daily. ascorbic 2020-0 Yes [id number] 500mg Take 1 [facility] acid, 5-06 tablet by [facility] of vitamin C, 00:00: mouth 3 [place] mg 00 (three) Medical tablet times Branch daily. ferrous 2020-0 Yes [id number] 325mg Take 1 [facility] [place] [place] sulfate 325 5-06 tablet by ity of mg (65 mg 00:00: mouth 2 [place] iron) 00 (two) Medical tablet times Branch daily. ascorbic 2020-0 Yes [id number] 500mg Take 1 [facility] acid, 5-06 tablet by [facility] of vitamin C, 00:00: mouth 3 [place] mg 00 (three) Medical tablet times Branch daily. ferrous 2020-0 Yes [id number] 325mg Take 1 [facility] [place] [place] sulfate 325 5-06 tablet by ity of mg (65 mg 00:00: mouth 2 [place] iron) 00 (two) Medical tablet times Branch daily. ascorbic 2020-0 Yes [id number] 500mg Take 1 [facility] acid, 5-06 tablet by [facility] of vitamin C, 00:00: mouth 3 [place] mg 00 (three) Medical tablet times Branch daily. ferrous 2020-0 Yes [id number] 325mg Take 1 [facility] [place] sulfate 325 5-06 tablet by ity of mg (65 mg 00:00: mouth 2 [place] iron) 00 (two) Medical tablet times Branch daily. ascorbic 2020-0 Yes [id number] 500mg Take 1 [facility] acid, 5-06 tablet by [facility] of vitamin C, 00:00: mouth 3 [place] mg 00 (three) Medical tablet times Branch daily. ferrous 2020-0 Yes [id number] 325mg Take 1 [facility] [place] sulfate 325 5-06 tablet by ity of mg (65 mg 00:00: mouth 2 [place] iron) 00 (two) Medical tablet times Branch daily. ascorbic 2020-0 Yes [id number] 500mg Take 1 [facility] acid, 5-06 tablet by [facility] of vitamin C, 00:00: mouth 3 [place] mg 00 (three) Medical tablet times Branch daily. ferrous 2020-0 Yes [id number] 325mg Take 1 [facility] [place] sulfate 325 5-06 tablet by ity of mg (65 mg 00:00: mouth 2 [place] iron) 00 (two) Medical tablet times Branch daily. ascorbic 2020-0 Yes [id number] 500mg Take 1 [facility] acid, 5-06 tablet by [facility] of vitamin C, 00:00: mouth 3 [place] mg 00 (three) Medical tablet times Branch daily. ferrous 2020-0 Yes [id number] 325mg Take 1 [facility] [place] sulfate 325 5-06 tablet by ity of mg (65 mg 00:00: mouth 2 [place] iron) 00 (two) Medical tablet times Branch daily. ascorbic 2020-0 Yes [id number] 500mg Take 1 [facility] n[facility] acid, 5-06 tablet by [facility] of vitamin C, 00:00: mouth 3 [place] mg 00 (three) Medical tablet times Branch daily. ferrous 2020-0 Yes [id number] 325mg Take 1 [facility] [place] sulfate 325 5-06 tablet by ity of mg (65 mg 00:00: mouth 2 [place] iron) 00 (two) Medical tablet times Branch daily. ascorbic 2020-0 Yes [id number] 500mg Take 1 [facility] n[facility] acid, 5-06 tablet by [facility] of vitamin C, 00:00: mouth 3 [place] mg 00 (three) Medical tablet times Branch daily. ferrous 2020-0 Yes [id number] 325mg Take 1 [facility] [place] sulfate 325 5-06 tablet by ity of mg (65 mg 00:00: mouth 2 [place] iron) 00 (two) Medical tablet times Branch daily. ascorbic 2020-0 Yes [id number] 500mg Take 1 [facility] acid, 5-06 tablet by [facility] of vitamin C, 00:00: mouth 3 [place] mg 00 (three) Medical tablet times Branch daily. ferrous 2020-0 Yes [id number] 325mg Take 1 [facility] [place] sulfate 325 5-06 tablet by ity of mg (65 mg 00:00: mouth 2 [place] iron) 00 (two) Medical tablet times Branch daily. ascorbic 2020-0 2020- No [id number] 500mg Take 1 [facility] acid, 09-13-09 tablet by ity of vitamin C, 00:00: 00:00 mouth 3 [place] 500 mg 00 :00 (three) Medical tablet times Branch daily. ferrous 2020-0 2020- No [id number] 325mg Take 1 [facility] n[facility] sulfate 325 09-13-09 tablet by it y of mg (65 mg 00:00: 00:00 mouth [place]) 00 :00 (two) Medical tablet times Branch daily. ascorbic 2020-0 2020- No [id number] 500mg Take 1 [facility] acid, 09-13-09 tablet by ity of vitamin C, 00:00: 00:00 mouth 3 [place] 500 mg 00 :00 (three) Medical tablet times Branch daily. ferrous 2020-0 2020- No [id number] 325mg Take 1 [facility] n[facility] sulfate 325 -10 15-09 tablet by it y of mg (65 mg 00:00: 00:00 mouth [place]) 00 :00 (two) Medical tablet times Branch daily. ascorbic 2020-0 2020- No [id number] 500mg Take 1 [facility] acid, 5- 07-09 tablet by ity of vitamin C, 00:00: 00:00 mouth 3 [place] 500 mg 00 :00 (three) Medical tablet times Branch daily. ferrous 2020-0 2020- No [id number] 325mg Take 1 [facility] n[facility] sulfate 325 09-13 tablet by it y of mg (65 mg 00:00: 00:00 mouth [place]) 00 :00 (two) Medical tablet times Branch daily. ascorbic 2019- No [id number] 500mg Take 1 [facility] acid, 09-13- tablet by ity of vitamin C, 00:00: 00:00 mouth 3 [place] 500 mg 00 :00 (three) Medical tablet times Branch daily. ferrous No [id number] 325mg Take 1 [facility] n[facility] sulfate 325 09-13 tablet by it y of mg (65 mg 00:00: 00:00 mouth [place]) 00 :00 (two) Medical tablet times Branch daily. ascorbic No [id number] 500mg Take 1 [facility] acid, 09-13 tablet by ity of vitamin C, 00:00: 00:00 mouth 3 [place] 500 mg 00 :00 (three) Medical tablet times Branch daily. ferrous No [id number] 325mg Take 1 [facility] n[facility] sulfate 325 09-13 tablet by it y of mg (65 mg 00:00: 00:00 mouth [place]) 00 :00 (two) Medical tablet times Branch daily. ascorbic No [id number] 500mg Take 1 [facility] acid, 09-13 tablet by ity of vitamin C, 00:00: 00:00 mouth 3 [place] 500 mg 00 :00 (three) Medical tablet times Branch daily. ferrous 2019- No [id number] 325mg Take 1 [facility] n[facility] sulfate 325 09-13 tablet by it y of mg (65 mg 00:00: 00:00 mouth [place]) 00 :00 (two) Medical tablet times Branch daily. ascorbic 2019- No [id number] 500mg Take 1 [facility] acid, 09-13-09 tablet by ity of vitamin C, 00:00: 00:00 mouth 3 [place] 500 mg 00 :00 (three) Medical tablet times Branch daily. ferrous 2019-2019- No [id number] 325mg Take 1 [facility] n[facility] sulfate 325 09-13- tablet by it y of mg (65 mg 00:00: 00:00 mouth [place]) 00 :00 (two) Medical tablet times Branch daily. ascorbic 2020-0 2020- No [id number] 500mg Take 1 [facility] acid, 09-13-09 tablet by ity of vitamin C, 00:00: 00:00 mouth 3 [place] 500 mg 00 :00 (three) Medical tablet times Branch daily. ferrous 2020-0 2020- No [id number] 325mg Take 1 [facility] n[facility] sulfate 325 09-13-09 tablet by it y of mg (65 mg 00:00: 00:00 mouth [place]) 00 :00 (two) Medical tablet times Branch daily. ascorbic 2020-0 Yes [id number] 500mg Take 1 [facility] n[facility] acid, 3-03 tablet by it[facility] of vitamin C, 00:00: mouth 3 [place] mg 00 (three) Medical tablet times Branch daily. ferrous 2020-0 Yes [id number] 325mg Take 1 [facility] [place] sulfate 325 3-03 tablet by ity of mg (65 mg 00:00: mouth 2 [place] iron) 00 (two) Medical tablet times Branch daily. ascorbic 2020-0 Yes [id number] 500mg Take 1 [facility] n[facility] acid, 3-03 tablet by ity of vitamin C, 00:00: mouth 3 [place] mg 00 (three) Medical tablet times Branch daily. ferrous 2020-0 Yes [id number] 325mg Take 1 [facility] [place] sulfate 325 3-03 tablet by ity of mg (65 mg 00:00: mouth 2 [place] iron) 00 (two) Medical tablet times Branch daily. ascorbic 2020-0 Yes [id number] 500mg Take 1 [facility] n[facility] acid, 3-03 tablet by [facility] of vitamin C, 00:00: mouth 3 [place] 500 mg 00 (three) Medical tablet times Branch daily. ferrous 2020-0 Yes [id number] 325mg Take 1 [facility] [place] sulfate 325 3-03 tablet by ity of mg (65 mg 00:00: mouth 2 [place] iron) 00 (two) Medical tablet times Branch daily. ascorbic 2020-0 Yes [id number] 500mg Take 1 [facility] n[facility] acid, 3-03 tablet by ity of vitamin C, 00:00: mouth 3 [place] mg 00 (three) Medical tablet times Branch daily. ferrous 2020-0 Yes [id number] 325mg Take 1 [facility] [place] sulfate 325 3-03 tablet by ity of mg (65 mg 00:00: mouth 2 [place] iron) 00 (two) Medical tablet times Branch daily. ascorbic 2020-0 Yes [id number] 500mg Take 1 [facility] n[facility] acid, 3-03 tablet by ity of vitamin C, 00:00: mouth 3 [place] mg 00 (three) Medical tablet times Branch daily. ferrous 2020-0 Yes [id number] 325mg Take 1 [facility] [place] sulfate 325 3-03 tablet by ity of mg (65 mg 00:00: mouth 2 [place] iron) 00 (two) Medical tablet times Branch daily. ascorbic 2020-0 Yes [id number] 500mg Take 1 [facility] n[facility] acid, 3-03 tablet by ity of vitamin C, 00:00: mouth 3 [place] 500 mg 00 (three) Medical tablet times Branch daily. ferrous 2020-0 Yes [id number] 325mg Take 1 [facility] [place] sulfate 325 3-03 tablet by ity of mg (65 mg 00:00: mouth 2 [place] iron) 00 (two) Medical tablet times Branch daily. ascorbic 2020-0 Yes [id number] 500mg Take 1 [facility] n[facility] acid, 3-03 tablet by ity of vitamin C, 00:00: mouth 3 [place] 500 mg 00 (three) Medical tablet times Branch daily. ferrous 2020-0 Yes [id number] 325mg Take 1 [facility] [place] sulfate 325 3-03 tablet by ity of mg (65 mg 00:00: mouth 2 [place] iron) 00 (two) Medical tablet times Branch daily. ascorbic 2019- 2020- No [id number] 500mg Take 1 [facility] acid, 3-03 04-15 tablet by ity of vitamin C, 00:00: 00:00 mouth 3 [place] 500 mg 00 :00 (three) Medical tablet times Branch daily. ferrous 2020-0 2020- No [id number] 325mg Take 1 [facility] n[facility] sulfate 325 3-03 04-15 tablet by it y of mg (65 mg 00:00: 00:00 mouth [place] iron) 00 :00 (two) Medical tablet times Branch daily. PNV 67-iron 2019-0 Yes 1{capsu Take 1 U nivers ps-folate 1-07 le} capsule by ity of no.1-dha 00:00: mouth [place] (VITAFOL 00 daily. Medical ULTRA) 29 Branch mg iron- 1 mg-200 mg Cap PNV 67-iron 2019-0 Yes 1{capsu Take 1 U nivers ps-folate 1-07 le} capsule by ity of no.1-dha 00:00: mouth [place] (VITAFOL 00 daily. Medical ULTRA) 29 Branch mg iron- 1 mg-200 mg Cap PNV 67-iron 2020-0 Yes 1{capsu Take 1 U nivers ps-folate 1-07 le} capsule by ity of no.1-dha 00:00: mouth [place] (VITAFOL 00 daily. Medical ULTRA) 29 Branch mg iron- 1 mg-200 mg Cap PNV 67-iron 2020-0 Yes 1{capsu Take 1 U nivers ps-folate 1-07 le} capsule by ity of no.1-dha 00:00: mouth [place] (VITAFOL 00 daily. Medical ULTRA) 29 Branch mg iron- 1 mg-200 mg Cap PNV 67-iron 2020-0 Yes 1{capsu Take 1 U nivers ps-folate 1-07 le} capsule by ity of no.1-dha 00:00: mouth [place] (VITAFOL 00 daily. Medical ULTRA) 29 Branch mg iron- 1 mg-200 mg Cap PNV 67-iron 2020-0 Yes 1{capsu Take 1 U nivers ps-folate 1-07 le} capsule by ity of no.1-dha 00:00: mouth [place] (VITAFOL 00 daily. Medical ULTRA) 29 Branch mg iron- 1 mg-200 mg Cap PNV 67-iron 2020-0 Yes 1{capsu Take 1 U nivers ps-folate 1-07 le} capsule by ity of no.1-dha 00:00: mouth [place] (VITAFOL 00 daily. Medical ULTRA) 29 Branch mg iron- 1 mg-200 mg Cap PNV 67-iron 2020-0 Yes 1{capsu Take 1 U nivers ps-folate 1-07 le} capsule by ity of no.1-dha 00:00: mouth [place] (VITAFOL 00 daily. Medical ULTRA) 29 Branch mg iron- 1 mg-200 mg Cap PNV 67-iron 2020-0 Yes 1{capsu Take 1 U nivers ps-folate 1-07 le} capsule by ity of no.1-dha 00:00: mouth [place] (VITAFOL 00 daily. Medical ULTRA) 29 Branch mg iron- 1 mg-200 mg Cap PNV 67-iron 2020-0 Yes 1{capsu Take 1 U nivers ps-folate 1-07 le} capsule by ity of no.1-dha 00:00: mouth [place] (VITAFOL 00 daily. Medical ULTRA) 29 Branch mg iron- 1 mg-200 mg Cap PNV 67-iron 2020-0 Yes 1{capsu Take 1 U nivers ps-folate 1-07 le} capsule by ity of no.1-dha 00:00: mouth [place] (VITAFOL 00 daily. Medical ULTRA) 29 Branch mg iron- 1 mg-200 mg Cap PNV 67-iron 2020-0 Yes 1{capsu Take 1 U nivers ps-folate 1-07 le} capsule by ity of no.1-dha 00:00: mouth [place] (VITAFOL 00 daily. Medical ULTRA) 29 Branch mg iron- 1 mg-200 mg Cap PNV 67-iron 2020-0 Yes 1{capsu Take 1 U nivers ps-folate 1-07 le} capsule by ity of no.1-dha 00:00: mouth [place] (VITAFOL 00 daily. Medical ULTRA) 29 Branch mg iron- 1 mg-200 mg Cap PNV 67-iron 2020-0 2020- No 1{capsu Take 1 [facility] ps-folate 1-07 04-15 le} capsule by ity of no.1-dha 00:00: 00:00 mouth [place] (VITAFOL 00 :00 daily. Medical ULTRA) 29 Branch mg iron- 1 mg-200 mg Cap 2019- Yes [id number] 1{tbl} Take 1 U nivers multivitami 1-06 tablet by ity of n ( 00:00: mouth [place] VITAMIN) 00 daily. Medical tablet Branch 2019- Yes [id number] 1{tbl} Take 1 U nivers multivitami 1-06 tablet by ity of n ( 00:00: mouth [place] VITAMIN) 00 daily. Medical tablet Branch 2019- Yes [id number] 1{tbl} Take 1 U nivers multivitami 1-06 tablet by ity of n ( 00:00: mouth [place] VITAMIN) 00 daily. Medical tablet Branch 2019 Yes [id number] 1{tbl} Take 1 U nivers multivitami 1-06 tablet by ity of n ( 00:00: mouth [place] VITAMIN) 00 daily. Medical tablet Branch 2019 2020- No [id number] 1{tbl} Take 1 [facility] multivitami 1-06 02-13 tablet by it y of n ( 00:00: 00:00 [place] VITAMIN) 00 :00 daily. Medical tablet Branch norgestimat Yes [id number] 1{tbl} Take 1 [facility] e-ethinyl 5-24 tablet by ity o f estradiol 00:00: mouth [place] [facility] 0.18/0.215/ 0.25 mg-25 mcg tablet norgestimat Yes [id number] 1{tbl} Take 1 [facility] e-ethinyl 5-24 tablet by ity o f estradiol 00:00: mouth [place] (ORTHO 00 [facility]. [facility] 0.18/0.215/ 0.25 mg-25 mcg tablet norgestimat Yes [id number] 1{tbl} Take 1 [facility] e-ethinyl 5-24 tablet by ity o f estradiol 00:00: mouth [place] (ORTHO 00 [facility]. [facility] 0.18/0.215/ 0.25 mg-25 mcg tablet norgestimat Yes [id number] 1{tbl} Take 1 [facility] e-ethinyl 5-24 tablet by ity o f estradiol 00:00: mouth [place] (ORTHO 00 daily. [facility], ,) 0.18/0.215/ 0.25 mg-25 mcg tablet norgestimat 2020- No [id number] 1{tbl} Take 1 [facility] e-ethinyl 5-24 02- tablet by ity of estradiol 00:00: 00:00 mouth [place] (ORTHO 00 :00 daily. [place] [address],) 0.18/0.215/ 0.25 mg-25 mcg tablet No known No [facility] [place] [facility] No known No [facility] medications [facility] No known [facility] [place] [facility] No [facility] [place] [facility] No [facility] [place] [facility] No known No [facility] medications [facility] No [facility] No [facility] medications [facility] [place] [facility] No known No [facility] medications ity of [facility] No known No [facility] medications ity of [facility] No known No [facility] medications ity of [facility] Immunizations Ordered Filled Immunization Date Status Comments [facility] e Immunization Name Name Tdap 2019-07-26 Completed [facility] of 00:00:00 [place] [facility] Tdap 2019-07-26 Completed [facility] of 00:00:00 [place] [facility] Tdap 2019-07-26 Completed [facility] of 00:00:00 [place] [facility] Tdap 2019-07-26 Completed [facility] of 00:00:00 [place] [facility] Tdap 2019-07-26 Completed [facility] of 00:00:00 [place] [facility] Tdap 2019-07-26 Completed [facility] of 00:00:00 [place] [facility] Tdap 2019-07-26 Completed [facility] of 00:00:00 [place] [facility] Tdap 2019-07-26 Completed [facility] of 00:00:00 [place] [facility] Tdap 2019-07-26 Completed [facility] of 00:00:00 [place] [facility] Tdap 2019-07-26 Completed [facility] of 00:00:00 [place] [facility] Tdap 2019-07-26 Completed [facility] of 00:00:00 [place] [facility] Tdap 2019-07-26 Completed [facility] of 00:00:00 [place] [facility] Tdap 2019-07-26 Completed [facility] of 00:00:00 [place] [facility] Tdap 2019-07-26 Completed [facility] of 00:00:00 [place] [facility] Tdap 2019-07-26 Completed [facility] of 00:00:00 [place] [facility] Tdap 2019-07-26 Completed [facility] of 00:00:00 [place] [facility] Tdap 2019-07-26 Completed [facility] of 00:00:00 [place] [facility] Tdap 2019-07-26 Completed [facility] of 00:00:00 [place] [facility] Tdap 2019-07-26 Completed [facility] of 00:00:00 [place] [facility] Tdap 2019-07-26 Completed [facility] of 00:00:00 [place] [facility] Tdap 2019-07-26 Completed [facility] of 00:00:00 [place] [facility] Tdap 2019-07-26 Completed [facility] of 00:00:00 [place] [facility] Tdap 2019-07-26 Completed [facility] of 00:00:00 [place] [facility] TDAP 2019-07-26 Completed [facility] of 00:00:00 [place] [facility] TDAP 2019-07-26 Completed [facility] of 00:00:00 [place] [facility] TDAP 2019-07-26 Completed [facility] of 00:00:00 [place] [facility] TDAP 2019-07-26 Completed [facility] of 00:00:00 [place] [facility] TDAP 2019-07-26 Completed [facility] of 00:00:00 [place] [facility] TDAP 2019-07-26 Completed [facility] of 00:00:00 [place] [facility] TDAP 2019-07-26 Completed [facility] of 00:00:00 [place] [facility] TDAP 2019-07-26 Completed [facility] of 00:00:00 [place] [facility] TDAP 2019-07-26 Completed [facility] of 00:00:00 [place] [facility] TDAP 2019-07-26 Completed [facility] of 00:00:00 [place] [facility] TDAP 2019-07-26 Completed [facility] of 00:00:00 [place] [facility] TDAP 2019-07-26 Completed [facility] of 00:00:00 [place] [facility] TDAP 2019-07-26 Completed [facility] of 00:00:00 [place] [facility] TDAP 2019-07-26 Completed [facility] of 00:00:00 [place] [facility] TDAP 2019-07-26 Completed [facility] of 00:00:00 [place] [facility] TDAP 2019-07-26 Completed [facility] of 00:00:00 [place] [facility] TDAP 2019-07-26 Completed [facility] of 00:00:00 [place] [facility] TDAP 2019-07-26 Completed [facility] of 00:00:00 [place] [facility] TDAP 2019-07-26 Completed [facility] of 00:00:00 [place] [facility] TDAP 2019-07-26 Completed [facility] of 00:00:00 [place] [facility] TDAP 2019-07-26 Completed University of 00:00:00 [place] [facility] TDAP 2019-07-26 Completed University of 00:00:00 [place] [facility] TDAP 2019-07-26 Completed University of 00:00:00 [place] [facility] TDAP 2019-07-26 Completed [facility] of 00:00:00 [facility] Influenza Virus 2019-03-16 Completed Universit y of Vacc[facility] .5 mL 00:00:00 [place] [facility] 6+ MO [facility] Influenza Virus 2019-03-16 Completed Universit y of [facility] [place] .5 mL 00:00:00 [place] [facility] IM 6+ MO Branch Influenza Virus 2019-03-16 Completed Universit y of [facility] [place] .5 mL 00:00:00 [place] [facility] IM 6+ MO Branch Influenza Virus 2019-03-16 Completed Universit y of [facility] [place] .5 mL 00:00:00 [place] [facility] IM 6+ MO Branch Influenza Virus 2019-03-16 Completed Universit y of [facility]ine [place] .5 mL 00:00:00 [place] [facility] IM 6+ MO Branch Influenza Virus 2019-03-16 Completed Universit y of [facility] [place] .5 mL 00:00:00 [place] [facility] IM 6+ MO Branch Influenza Virus 2019-03-16 Completed Universit y of [facility] [place] .5 mL 00:00:00 [place] [facility] IM 6+ MO Branch Influenza Virus 2019-03-16 Completed Universit y of [facility] [place] .5 mL 00:00:00 [place] [facility] IM 6+ MO Branch Influenza Virus 2019-03-16 Completed Universit y of [facility] [place] .5 mL 00:00:00 [place] [facility] IM 6+ MO Branch Influenza Virus 2019-03-16 Completed Universit y of [facility] [place] .5 mL 00:00:00 [place] [facility] IM 6+ MO Branch Influenza Virus 2019-03-16 Completed Universit y of [facility] [place] .5 mL 00:00:00 [place] [facility] IM 6+ MO Branch Influenza Virus 2019-03-16 Completed Universit y of [facility] [place] .5 mL 00:00:00 [place] [facility] IM 6+ MO Branch Influenza Virus 2019-03-16 Completed Universit y of [facility] [place] .5 mL 00:00:00 [place] [facility] IM 6+ MO Branch Influenza Virus 2019-03-16 Completed Universit y of [facility] [place] .5 mL 00:00:00 [place] [facility] IM 6+ MO Branch Influenza Virus 2019-03-16 Completed Universit y of [facility] [place] .5 mL 00:00:00 [place] [facility] IM 6+ MO Branch Influenza Virus 2019-03-16 Completed Universit y of [facility] [place] .5 mL 00:00:00 [place] [facility] IM 6+ MO Branch Influenza Virus 2019-03-16 Completed Universit y of [facility] [place] .5 mL 00:00:00 [place] [facility] IM 6+ MO Branch Influenza Virus 2019-03-16 Completed Universit y of [facility] [place] .5 mL 00:00:00 [place] [facility] IM 6+ MO Branch Influenza Virus 2019-03-16 Completed Universit y of [facility] [place] .5 mL 00:00:00 [place] [facility] IM 6+ MO Branch Influenza Virus 2019-03-16 Completed Universit y of [facility] [place] .5 mL 00:00:00 [place] [facility] IM 6+ MO Branch Influenza Virus 2019-03-16 Completed Universit y of [facility] [place] .5 mL 00:00:00 [place] [facility] IM 6+ MO Branch Influenza Virus 2019-03-16 Completed Universit y of [facility] [place] .5 mL 00:00:00 [place] [facility] IM 6+ MO Branch Influenza Virus 2019-03-16 Completed Universit y of [facility]ine [place] .5 mL 00:00:00 [place] [facility] IM 6+ MO Branch Influenza Virus 2019-03-16 Completed Universit y of [facility] [place] .5 mL 00:00:00 [place] [facility] IM 6+ MO Branch Influenza Virus 2019-03-16 Completed Universit y of [facility] .5 mL 00:00:00 [place] [facility] IM 6+ MO Branch Influenza Virus 2019-03-16 Completed Universit y of [facility]ine [place] .5 mL 00:00:00 [place] [facility] IM 6+ MO Branch Influenza Virus 2019-03-16 Completed Universit y of Vaccine [place] .5 mL 00:00:00 [place] [facility] IM 6+ MO Branch Influenza Virus 2019-03-16 Completed Universit y of [facility]ine [place] .5 mL 00:00:00 [place] [facility] IM 6+ MO Branch Influenza Virus 2019-03-16 Completed Universit y of Vaccine [facility] .5 mL 00:00:00 [place] [facility] IM 6+ MO Branch Influenza Virus 2019-03-16 Completed Universit y of Vaccine Quad .5 mL 00:00:00 [facility] Influenza Virus 2019-03-16 Completed Universit y of Vaccine Quad .5 mL 00:00:00 [facility] Influenza Virus 2019-03-16 Completed Universit y of Vaccine Quad .5 mL 00:00:00 [facility] 6[facility] Influenza Virus 2019-03-16 Completed Universit y of Vaccine Quad .5 mL 00:00:00 [facility] 6[facility] Influenza Virus 2019-03-16 Completed Universit y of Vaccine Quad .5 mL 00:00:00 [facility] 6[facility] Influenza Virus 2019-03-16 Completed Universit y of Vaccine Quad .5 mL 00:00:00 [facility] 6[facility] Influenza Virus 2019-03-16 Completed Universit y of Vaccine Quad .5 mL 00:00:00 [facility] 6[facility] Influenza Virus 2019-03-16 Completed Universit y of Vaccine Quad .5 mL 00:00:00 [facility] 6[facility] Influenza Virus 2019-03-16 Completed Universit y of Vaccine Quad .5 mL 00:00:00 [facility] 6[facility] Influenza Virus 2019-03-16 Completed Universit y of Vaccine Quad .5 mL 00:00:00 [facility] 6[facility] Influenza Virus 2019-03-16 Completed Universit y of Vaccine Quad .5 mL 00:00:00 [facility] 6[facility] Influenza Virus 2019-03-16 Completed Universit y of Vaccine Quad .5 mL 00:00:00 [facility] 6[facility] Influenza Virus 2019-03-16 Completed Universit y of Vaccine Quad .5 mL 00:00:00 [facility] 6[facility] Influenza Virus 2019-03-16 Completed Universit y of Vaccine Quad .5 mL 00:00:00 [facility] 6[facility] Influenza Virus 2019-03-16 Completed Universit y of Vaccine Quad .5 mL 00:00:00 [facility] 6[facility] Influenza Virus 2019-03-16 Completed [facility]it y of Vaccine Quad .5 mL 00:00:00 [facility] 6[facility] Influenza Virus 2019-03-16 Completed [facility]it y of Vaccine Quad .5 mL 00:00:00 [facility] 6+ MO [facility] Influenza Virus 2019-03-16 Completed [facility]it y of Vaccine Quad .5 mL 00:00:00 [facility] 6+ MO [facility] Influenza Virus 2019-03-16 Completed Universit y of Vaccine Quad .5 mL 00:00:00 [facility] 6+ MO [facility] Influenza Virus 2019-03-16 Completed Universit y of Vaccine Quad .5 mL 00:00:00 [facility] 6+ MO Branch Influenza Virus 2019-03-16 Completed Universit y of Vaccine Quad .5 mL 00:00:00 [facility] Influenza Virus 2019-03-16 Completed Universit y of Vaccine Quad .5 mL 00:00:00 [facility] 6[facility] Influenza Virus 2019-03-16 Completed [facility]it y of Vaccine Quad .5 mL 00:00:00 [facility] 6[facility] Influenza Virus 2019-03-16 Completed Universit y of Vaccine Quad .5 mL 00:00:00 [facility] 6[facility] Influenza Virus 2019-03-16 Completed [facility]it y of Vaccine Quad .5 mL 00:00:00 [facility] 6[facility] Influenza Virus 2019-03-16 Completed [facility]it y of Vaccine Quad .5 mL 00:00:00 [facility] 6[facility] (FLUZONE/FLULAVAL/F LUARIX) Influenza Virus 2019-03-16 Completed Universit y of Vaccine Quad .5 mL 00:00:00 [facility] 6+ [facility] Tdap 2015-05-11 Completed University of 00:00:00 [facility] Tdap 2015-05-11 Completed University of 00:00:00 [facility] Tdap 2015-05-11 Completed [facility] 00:00:00 [facility] Tdap 2015-05-11 Completed University of 00:00:00 [facility] Tdap 2015-05-11 Completed University of 00:00:00 [facility] Tdap 2015-05-11 Completed University of 00:00:00 [facility] Tdap 2015-05-11 Completed [facility] 00[facility]00[facility] 00:00[facility] 2015[facility]11 Completed [facility] 00[facility]00[facility] 2015[facility]11 Completed [facility] of 00:00:00 [facility] Tdap 2015-05-11 Completed University of 00:00:00 [facility] Tdap 2015-05-11 Completed [facility] 00[facility]00[facility] [facility] Com[facility] of 00:00:00 [facility] Tdap 2015-05-11 Completed University of 00:00:00 [facility] Tdap 2015-05-11 Completed [facility] 00[facility]00[facility] [facility] Completed [facility] of 00:00:00 [facility] Tdap 2015-05-11 Completed University of 00:00:00 [facility] Tdap 2015-05-11 Completed University of 00:00:00 [facility] Tdap 2015-05-11 Completed University of 00:00:00 [facility] Tdap 2015-05-11 Completed University of 00:00:00 [facility] Tdap 2015-05-11 Completed University of 00:00:00 [facility] Tdap 2015-05-11 Completed University of 00:00:00 [facility] Tdap 2015-05-11 Completed University of 00:00:00 [facility] Tdap 2015-05-11 Completed University of 00:00:00 [facility] Tdap 2015-05-11 Completed University of 00:00:00 [facility] Tdap 2015-05-11 Completed University of 00:00:00 [facility] Tdap 2015-05-11 Completed University of 00:00:00 [facility] Tdap 2015-05-11 Completed University of 00:00:00 [facility] TDAP 2015-05-11 Completed University of 00:00:00 [facility] TDAP 2015-05-11 Completed University of 00:00:00 [facility] TDAP 2015-05-11 Completed University of 00:00:00 [facility] TDAP 2015-05-11 Completed University of 00:00:00 [facility] TDAP 2015-05-11 Completed University of 00:00:00 [facility] TDAP 2015-05-11 Completed University of 00:00:00 [facility] TDAP 2015-05-11 Completed University of 00:00:00 [facility] TDAP 2015-05-11 Completed University of 00:00:00 [facility] TDAP 2015-05-11 Completed University of 00:00:00 [facility] TDAP 2015-05-11 Completed University of 00:00:00 [facility] Tdap 2015-05-11 Completed University of 00:00:00 [facility] TDAP 2015-05-11 Completed University of 00:00:00 [facility] TDAP 2015-05-11 Completed University of 00:00:00 [facility] TDAP 2015-05-11 Completed University of 00:00:00 [facility] TDAP 2015-05-11 Completed University of 00:00:00 [facility] TDAP 2015-05-11 Completed University of 00:00:00 [facility] TDAP 2015-05-11 Completed University of 00:00:00 [facility] TDAP 2015-05-11 Completed University of 00:00:00 [facility] TDAP 2015-05-11 Completed University of 00:00:00 [facility] TDAP 2015-05-11 Completed University of 00:00:00 [facility] TDAP 2015-05-11 Completed University of 00:00:00 [facility] TDAP 2015-05-11 Completed University of 00:00:00 [facility] TDAP 2015-05-11 Completed University of 00:00:00 [facility] TDAP 2015-05-11 Completed University of 00:00:00 [facility] Tdap 2015-05-11 Completed University of 00:00:00 [facility] TDAP 2015-05-11 Completed University of 00:00:00 [facility] Tdap 2015-05-11 Completed University of 00:00:00 [facility] Vital Signs Vital Name Observation Time Observation Value Comments Source Systolic blood 2023-01-17 20:36:00 123 mm[Hg] Univer sity of pressure [facility] Diastolic blood 2023-01-17 20:36:00 87 mm[Hg] Unive rsity of pressure [facility] Heart rate 2023-01-17 20:36:00 79 /min Universi ty of [facility] Body temperature 2023-01-17 20:36:00 37.22 Olga Univ ersity of [facility] Respiratory rate 2023-01-17 20:36:00 16 /min Univ ersity of [facility] Body height 2023-01-17 20:36:00 162.6 cm Universi ty of [facility] Body weight 2023-01-17 20:36:00 74.844 kg Universi ty of [facility] [place] BMI 2023-01-17 20:36:00 28.32 kg/m2 Universi ty of [facility] Oxygen saturation in 2023-01-17 20:36:00 99 /min University Arterial blood by [facility] Pulse oximetry Branch Systolic blood 2020-02-21 18:23:00 132 mm[Hg] Univer sity of pressure [facility] Diastolic blood 2020-02-21 18:23:00 77 mm[Hg] Unive rsity of pressure [facility] Heart rate 2020-02-21 18:23:00 84 /min Universi ty of [facility] Body temperature 2020-02-21 18:23:00 36.44 Olga Univ ersity of [facility] Respiratory rate 2020-02-21 18:23:00 16 /min Univ ersity of [facility] Body height 2020-02-21 18:23:00 165.1 cm Universi ty of [facility] Body weight 2020-02-21 18:23:00 97.098 kg [facility]i ty of [facility] BMI 2020-02-21 18:23:00 35.62 kg/m2 Universi ty of [facility] Systolic blood 2020-02-14 18:28:00 111 mm[Hg] Univer sity of pressure [facility] Diastolic blood 2020-02-14 18:28:00 76 mm[Hg] Unive rsity of pressure [facility] Heart rate 2020-02-14 18:28:00 86 /min Universi ty of [facility] Body temperature 2020-02-14 18:28:00 36.78 Olga Univ ersity of [facility] Respiratory rate 2020-02-14 18:28:00 16 /min Univ ersity of [facility] Body height 2020-02-14 18:28:00 165.1 cm Universi ty of [facility] Body weight 2020-02-14 18:28:00 97.75 kg Universi ty of [facility] BMI 2020-02-14 18:28:00 35.86 kg/m2 [facility]i ty of [facility] Systolic blood 2019-12-29 13:46:00 106 mm[Hg] Univer sity of pressure [facility] Diastolic blood 2019-12-29 13:46:00 74 mm[Hg] Unive rsity of pressure [facility] Heart rate 2019-12-29 13:46:00 64 /min Universi ty of [facility] Body temperature 2019-12-29 13:46:00 37.11 Olga Univ ersity of [facility] Respiratory rate 2019-12-29 13:46:00 16 /min Univ ersity of [facility] Body height 2019-12-29 13:46:00 165.1 cm Universi ty of [facility] Body weight 2019-12-29 13:46:00 95.709 kg Universi ty of [facility] BMI 2019-12-29 13:46:00 35.11 kg/m2 [facility]i ty of [facility] Systolic blood 2019-11-17 13:55:00 122 mm[Hg] Univer sity of pressure [facility] Diastolic blood 2019-11-17 13:55:00 78 mm[Hg] Unive rsity of pressure [facility] Heart rate 2019-11-17 13:55:00 104 /min Universi ty of [facility] Body temperature 2019-11-17 13:55:00 36.83 Olga Univ ersity of [facility] Respiratory rate 2019-11-17 13:55:00 16 /min Univ ersity of [facility] Body height 2019-11-17 13:55:00 165.1 cm Universi ty of [facility] Body weight 2019-11-17 13:55:00 92.171 kg Universi ty of [facility] BMI 2019-11-17 13:55:00 33.81 kg/m2 Universi ty of [facility] Systolic blood 2019-10-25 15:09:00 109 mm[Hg] Univer sity of pressure [facility] Diastolic blood 2019-10-25 15:09:00 70 mm[Hg] Unive rsity of pressure [facility] Heart rate 2019-10-25 15:09:00 87 /min Universi ty of [facility] Body temperature 2019-10-25 15:09:00 36.89 Olga Univ ersity of [facility] Respiratory rate 2019-10-25 15:09:00 16 /min Univ ersity of [facility] Body height 2019-10-25 15:09:00 165.1 cm Universi ty of [facility] Body weight 2019-10-25 15:09:00 92.307 kg Universi ty of [facility] BMI 2019-10-25 15:09:00 33.86 kg/m2 Universi ty of [facility] Systolic blood 2019-10-04 12:49:00 109 mm[Hg] Univer sity of pressure [facility] Diastolic blood 2019-10-04 12:49:00 68 mm[Hg] Unive rsity of pressure [facility] Heart rate 2019-10-04 12:49:00 84 /min Universi ty of [facility] Body temperature 2019-10-04 12:49:00 36.56 Olga Univ ersity of [facility] Respiratory rate 2019-10-04 12:49:00 18 /min [facility] Oxygen saturation in 2019-10-04 12:49:00 97 /min [facility] by [facility] Pulse oximetry Branch Body height 2019-10-03 02:57:00 165.1 cm Universi ty of [facility] Body weight 2019-10-03 02:57:00 102.059 kg Universi ty of [facility] BMI 2019-10-03 02:57:00 37.44 kg/m2 Universi ty of [facility] Systolic blood 2019-09-29 20:12:00 139 mm[Hg] Univer sity of pressure [facility] Diastolic blood 2019-09-29 20:12:00 76 mm[Hg] Unive rsity of pressure [facility] Heart rate 2019-09-29 20:12:00 88 /min Universi ty of [facility] Body temperature 2019-09-29 20:12:00 37.06 Olga Univ ersity of [facility] Respiratory rate 2019-09-29 20:12:00 16 /min Univ ersity of [facility] Body height 2019-09-29 20:12:00 165.1 cm Universi ty of [facility] Body weight 2019-09-29 20:12:00 100.5 kg Universi ty of [facility] BMI 2019-09-29 20:12:00 36.87 kg/m2 [facility]i ty of [facility] Systolic blood 2019-09-21 19:48:00 132 mm[Hg] Univer sity of pressure [facility] Diastolic blood 2019-09-21 19:48:00 78 mm[Hg] Unive rsity of pressure [facility] Heart rate 2019-09-21 19:48:00 103 /min Universi ty of [facility] Body temperature 2019-09-21 19:48:00 36.11 Olag Univ ersity of [facility] Respiratory rate 2019-09-21 19:48:00 16 /min Univ ersity of [facility] Body height 2019-09-21 19:48:00 165.1 cm Universi ty of [facility] Body weight 2019-09-21 19:48:00 100.33 kg Universi ty of [facility] BMI 2019-09-21 19:48:00 36.81 kg/m2 [facility] ty [facility] Systolic blood 2019-09-13 18:07:00 135 mm[Hg] Univer sity of pressure [facility] Diastolic blood 2019-09-13 18:07:00 83 mm[Hg] Unive rsity of pressure [facility] Heart rate 2019-09-13 18:07:00 104 /min Universi ty of [facility] Body temperature 2019-09-13 18:07:00 36.28 Olga Univ ersity of [facility] Respiratory rate 2019-09-13 18:07:00 16 /min Univ ersity of [facility] Body height 2019-09-13 18:07:00 165.1 cm [facility]i ty of [facility] Body weight 2019-09-13 18:07:00 98.544 kg Universi ty of [facility] BMI 2019-09-13 18:07:00 36.15 kg/m2 Universi ty of [facility] Systolic blood 2019-09-07 14:32:00 128 mm[Hg] Univer sity of pressure [facility] Diastolic blood 2019-09-07 14:32:00 72 mm[Hg] Unive rsity of pressure [facility] Heart rate 2019-09-07 14:32:00 97 /min Universi ty of [facility] Body temperature 2019-09-07 14:32:00 36.11 Olga Univ ersity of [facility] Respiratory rate 2019-09-07 14:32:00 16 /min Univ ersity of [facility] Body height 2019-09-07 14:32:00 165.1 cm Universi ty of [facility] Body weight 2019-09-07 14:32:00 99.366 kg Universi ty of [facility] BMI 2019-09-07 14:32:00 36.45 kg/m2 Universi ty of [facility] Systolic blood 2019-08-24 21:20:00 112 mm[Hg] Univer sity of pressure [facility] Diastolic blood 2019-08-24 21:20:00 66 mm[Hg] Unive rsity of pressure [facility] Heart rate 2019-08-24 21:20:00 106 /min Universi ty of [facility] Oxygen saturation in 2019-08-24 21:20:00 98 /min University of Arterial blood by [facility] Pulse oximetry Branch Body temperature 2019-08-24 20:05:00 37.11 Olga Univ ersity of [facility] Respiratory rate 2019-08-24 20:05:00 18 /min Univ ersity of [facility] Body height 2019-08-24 20:05:00 165.1 cm Universi ty of [facility] Systolic blood 2019-08-24 14:54:00 135 mm[Hg] Univer sity of pressure [facility] Diastolic blood 2019-08-24 14:54:00 103 mm[Hg] Unive rsity of pressure [facility] Systolic blood 2019-07-26 18:02:00 119 mm[Hg] Univer sity of pressure [facility] Diastolic blood 2019-07-26 18:02:00 67 mm[Hg] Unive rsity of pressure [facility] Heart rate 2019-07-26 18:02:00 96 /min Universi ty of [facility] Body temperature 2019-07-26 18:02:00 36.89 Olga Univ ersity of [facility] Respiratory rate 2019-07-26 18:02:00 16 /min Univ ersity of [facility] Body height 2019-07-26 18:02:00 165.1 cm Universi ty of [facility] Body weight 2019-07-26 18:02:00 96.163 kg Universi ty of [facility] BMI 2019-07-26 18:02:00 35.28 kg/m2 Universi ty of [facility] Systolic blood 2019-07-11 15:31:00 112 mm[Hg] Univer sity of pressure [facility] Diastolic blood 2019-07-11 15:31:00 65 mm[Hg] Unive rsity of pressure [facility] Heart rate 2019-07-11 15:31:00 94 /min [facility]i ty of [facility] Body temperature 2019-07-11 15:31:00 36.5 Olga Univ ersity of [facility] Respiratory rate 2019-07-11 15:31:00 16 /min Univ ersity of [facility] Body height 2019-07-11 15:31:00 165.1 cm Universi ty of [facility] Body weight 2019-07-11 15:31:00 93.951 kg [facility]i ty of [facility] BMI 2019-07-11 15:31:00 34.47 kg/m2 [facility] ty [facility] Systolic blood 2019-06-23 15:04:00 114 mm[Hg] Univer sity of pressure [facility] Diastolic blood 2019-06-23 15:04:00 77 mm[Hg] Unive rsity of pressure [facility] Heart rate 2019-06-23 15:04:00 97 /min Universi ty of [facility] Body temperature 2019-06-23 15:04:00 36.61 Olga Univ ersity of [facility] Respiratory rate 2019-06-23 15:04:00 16 /min Univ ersity of [facility] Body height 2019-06-23 15:04:00 165.1 cm [facility]i ty of [facility] Body weight 2019-06-23 15:04:00 91.286 kg Universi ty of [facility] BMI 2019-06-23 15:04:00 33.49 kg/m2 Universi ty of [facility] Procedures Procedure Date / Time Performing Clinician Source Performed CONSENT/REFUSAL FOR 2023-01-17 20:17:28 Doctor Unassigned, Lorraine Irizarry [facility] DIAGNOSIS AND TREATMENT [facility] DISCLOSURE AND CONSENT, 2020-02-21 05:01:00 Doctor Unassigned, N o [facility] PROCEDURES DISCLOSURE AND CONSENT, 2019-11-17 05:01:00 Doctor Unassigned, N o [facility] PROCEDURES POCT TEST 2019-11-17 00:00:00 [facility] POCT TEST 2019-10-25 15:36:00 [facility] CBC WITH DIFFERENTIAL 2019-10-04 08:32:00 [facility] VENOUS CORD GAS 2019-10-03 06:57:00 [facility] SECTION 2019-10-03 06:05:00 Martin Barnes [facility] CBC WITH DIFFERENTIAL 2019-10-03 04:22:00 [facility] HEPATITIS B SURFACE 2019-10-03 04:22:00 [facility] ANTIGEN [facility] [place] GALV ONLY - SYPHILIS 2019-10-03 04:22:00 [facility] IGG/IGM [facility] [place] HB ABO GROUPING 2019-10-03 04:05:00 [facility] RHO (D) IMMUNE GLOBULIN 2019-10-03 04:05:00 [facility] COVID-19 (ID NOW RAPID 2019-10-03 02:46:00 [facility] TESTING) [facility] [place] ASSIGNMENT OF BENEFITS 2019-09-29 20:53:04 Doctor Unassigned, No [facility] POCT URINALYSIS 2019-09-29 20:13:00 Shayy [facility] POCT URINALYSIS 2019-09-21 19:50:00 Shayy [facility] NON-STRESS TEST 2019-09-13 19:34:17 [facility] 2019-09-13 18:10:00 Shayy [facility] POCT URINALYSIS 2019-09-07 14:33:00 Shayy [facility] CORONAVIRUS COVID-19 2019-08-24 19:45:[address] [facility] CONSENT/REFUSAL FOR 2019-08-24 05:01:00 [facility] POCT URINALYSIS 2019-07-26 18:10:00 Shayy [facility] TDAP VACCINE, >11 YRS, 2019-07-26 18:08:52 Shayy Low [facility] STERILIZATION CONSENT 2019-07-26 05:01:00 Doctor Unassigned, No [facility] POCT URINALYSIS 2019-07-11 15:33:00 Shayy [facility] POCT URINALYSIS 2019-06-23 15:09:00 Shayy [facility] [id number] CONSENT 2019-03-16 06:01:00 Doctor Unassigned, No Unive [facility] Encounters Start End Encounter Admission Attending Care Care Encounter Source Date/Time Date/Time Type Type Clinicians Facility Department ID 2021-03-07 Outpatient P [facility] LORENE [id number] Univers 18:07:49 [facility] 2021-03-07 Outpatient [facility] [id number] Univers 18:06:17 [facility] 2023-01-17 2023-01-17 Emergency X MARGARITA AKTOSHA ERT [id number] Univers 15:37:00 16:45:[address] [facility] 2023-01-17 2023-01-17 Emergency Margarita [facility] [id number] Univers 15:37:00 16:45:00 Sera AGOSTO [id number] i ty of [id number] [id number] [facility] 084 Branch 2020-07-31 2020-07-31 Patient Kody [facility] 1.2.840.114 [id number] Univers 00:00:00 00:00:00 Outreach [place] PRIMARY 350.1.13.10 i ty of [facility] 4.2.7.2.686 Carsona s EDUARDO [phone] Ct dical [address] 2020-05-22 2020-05-22 Outpatient R MARANDA [facility] [id number] Univers 12:45:00 12:45:00 SHAYY mcnally o f [facility] 2020-05-13 2020-05-13 Refill RenecarlosRUST 1.2.732.830 [id number] Univers 00:00:00 00:00:00 Shayy C OPERATIONAL COMMUNICATION CHIEF 350.1.13.10 ity of [facility] 4.2.7.2.686 [place] as MATERNAL [phone] [facility] ical & CHILD [address] [place] [address] 2020-05-13 2020-05-13 [facility] 1.2.203.518 [id number] Univers 00:00:00 00:00:00 Shayy C OPERATIONAL COMMUNICATION CHIEF 350.1.13.10 ity of [facility] 4.2.7.2.686 [place] as MATERNAL [phone] [facility] & [address] 2020-04-14 2020-04-14 Refill MarandaRUST 1.2.413.484 [id number] Univers 00:00:00 00:00:00 Shayy C OPERATIONAL COMMUNICATION CHIEF 350.1.13.10 ity of [facility]AL 4.2.7.2.686 [place] as MATERNAL [phone] [facility] & CHILD [address] [place] [address] 2020-02-21 2020-03-01 Office RenecarlosRUST 1.2.806.468 [id number] Univers 13:05:15 13:56:54 Visit Shayy C OPERATIONAL COMMUNICATION CHIEF 350.1.13.10 ity of REGIONAL 4.2.7.2.686 [place] as MATERNAL [id number] [facility] & [address] 2020-03-01 2020-03-01 Telephone [facility] 1.2.840.114 [id number] Univers 00:00:00 00:00:00 Shayy C OPERATIONAL COMMUNICATION CHIEF 350.1.13.10 ity of [facility] 4.2.7.2.686 [place] as MATERNAL [phone] [address] 2020-02-21 2020-02-21 Outpatient R [facility] [id number] Univers 13:15:00 13:15:00 SHAYY mcnally o [facility] 2020-02-21 2020-02-21 Orders Doctor VALENTÍN 1.2.840.114 [id number] Univers 00:00:00 00:00:00 Only Unassigned, FELICIA 350.1.13.10 ity of [place] [facility] 4.2.7.2.686 [place] as [phone] [address] 2020-02-14 2020-02-14 Office [facility] 1.2.948.331 [id number] Univers 13:12:20 14:09:52 Visit Shayy C OPERATIONAL COMMUNICATION CHIEF 350.1.13.10 ity of [facility] 4.2.7.2.686 [place] as MATERNAL [id number] [address] 2020-02-14 2020-02-14 Outpatient R [facility] [id number] Univers 13:15:00 13:15:00 SHAYY mcnally o f [facility] 2020-02-13 2020-02-13 Telephone [facility] 1.2.518.821 [id number] Univers 00:00:00 00:00:00 Awildanda R OPERATIONAL COMMUNICATION CHIEF 350.1.13.10 ity of [facility] 4.2.7.2.686 [place] as MATERNAL [id number] [address] 2019-12-29 2019-12-29 Office [facility] 1.2.840.114 [id number] Univers 08:31:02 09:01:02 Visit Nikkia R OPERATIONAL COMMUNICATION CHIEF 350.1.13.10 ity of [facility] 42.7.2.686 [place] as MATERNAL [phone] [facility] ical & CHILD [address] [place] [address] 2019-12-29 2019-12-29 Outpatient R GARCIA [facility] [id number] Univers 08:30:00 08:30:00 STEFANONDA ity o f [facility] 2019-11-17 2019-11-21 Office GarciaRUST 1.2.840.114 [id number] Univers 08:44:46 14:31:15 Visit Stefanonda R OPERATIONAL COMMUNICATION CHIEF 350.1.13.10 ity of [facility] 4.2.7.2.686 [place] as MATERNAL [id number] [facility] & CHILD [address] [place] [address] 2019-11-17 2019-11-17 [facility] [id number] Univers 08:30:00 08:30:00 NIKKIA alejandrobayron o [facility] 2019-11-17 2019-11-17 Orders Doctor LAURA 1.2.840.114 [id number] Univers 00:00:00 00:00:00 Only Unassigned, FELICIA 350.1.13.10 ity of [place] [address].7.2.686 [place] as [phone] [address] 2019-10-25 2019-10-25 Routine [facility] 1.2.840.114 [id number] Univers 10:07:59 10:35:48 Rosjoenda R OPERATIONAL COMMUNICATION CHIEF 350.1.13.10 ity of Visit [facility] 4..7.2.686 [place] as MATERNAL [id number] [facility] ical & CHILD [address] [place] [address] 2019-10-25 2019-10-25 Outpatient Jamari GARCIA [facility] [id number] Univers 10:00:00 10:00:00 STEFANONDA dali o shweta [facility] 2019-10-11 2019-10-11 Outpatient R MARANDA [facility] [id number] Univers 08:30:00 08:30:00 SHAYY mcnally o f [facility] 2019-10-05 2019-10-05 Outpatient R MARANDA [facility] [id number] Univers 08:00:00 08:00:00 SHAYY alejandroy o f [facility] 2019-10-02 2019-10-04 Hospital [facility] 1.2.840.114 [id number] Univers 21:31:00 16:37:00 Encounter FELICIA 350.1.13.10 ity of HOSPITAL 4.2.7.2.686 [place] as [phone] [facility] [address] 2019-09-29 2019-09-29 Routine [facility] 1.2.586.492 [id number] Univers 15:04:49 15:50:17 Shayy C OPERATIONAL COMMUNICATION CHIEF 350.1.13.10 ity of Visit [facility] 4.2.7.2.686 [place] as MATERNAL [phone] [facility] ical & CHILD [address] [place] [address] 2019-09-29 2019-09-29 Outpatient R [facility] [id number] Univers 15:15:00 15:15:00 SHAYY mcnally o f [facility] 2019-09-29 2019-09-29 Orders Doctor LAURA 1.2.840.114 [id number] Univers 00:00:00 00:00:00 Only Unassigned, FELICIA 350.1.13.10 ity of [place] [facility] 4.2.7.2.686 [place] as [phone] [facility] [address] 2019-09-21 2019-09-21 Routine [facility] 1.2.404.816 [id number] Univers 14:40:26 14:55:26 Shayy C OPERATIONAL COMMUNICATION CHIEF 350.1.13.10 ity of Visit [facility] 4.2.7.2.686 [place] as MATERNAL [phone] [facility] ical & CHILD [address] [place] [address] 2019-09-21 2019-09-21 Outpatient R [facility] [id number] Univers 09:30:00 09:30:00 SHAYY ity o f [facility] 2019-09-20 2019-09-20 Abstract [facility] 1.2.840.114 [id number] Univers 00:00:00 00:00:00 Shayy C OPERATIONAL COMMUNICATION CHIEF 350.1.13.10 ity of [facility] 4.2.7.2.686 [place] as MATERNAL [phone] Med ical & CHILD 107 [facility] 2019-09-16 2019-09-16 Telephone [facility], [facility] 1.2.840.114 [id number] Univers 00:00:00 00:00:00 Shayy C OPERATIONAL COMMUNICATION CHIEF 350.1.13.10 ity of REGIONAL 4.2.7.2.686 [place] as MATERNAL [phone] [facility] ical & CHILD 107 [facility] 2019-09-15 2019-09-15 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, Meir-Mfm [facility] 1.2 .840.114 [id number] Univers 15:03:21 15:33:21 Visit Germain Nsah OPERATIONAL COMMUNICATION CHIEF 350.1.13.10 ity of REG[facility]AL 4.2.7.2.686 [place] as MATERNAL [phone] [facility] ical & CHILD 369 [facility] 2019-09-15 2019-09-15 Outpatient P [facility] [id number] Univers 15:15:00 15:15:00 ity of [facility] 2019-09-14 2019-09-14 Telephone [facility] 1.2.840.114 [id number] Univers 00:00:00 00:00:00 Shayy C OPERATIONAL COMMUNICATION CHIEF 350.1.13.10 ity of [facility]AL 4.2.7.2.686 [place] as MATERNAL [phone] [facility] [address] [place] [address] 2019-09-14 2019-09-14 Telephone [facility] 1.2.840.114 [id number] Univers 00:00:00 00:00:00 Shayy C OPERATIONAL COMMUNICATION CHIEF 350.1.13.10 ity of REGIONAL 4.2.7.2.686 [place] as MATERNAL [phone] [facility] [address] [place] [address] 2019-09-13 2019-09-13 Routine [facility] 1.2.558.064 [id number] Univers 12:45:37 14:34:52 Shayy C OPERATIONAL COMMUNICATION CHIEF 350.1.13.10 ity of Visit REGIONAL 4.2.7.2.686 [place] as MATERNAL [phone] [facility] ical & CHILD [address] [place] [address] 2019-09-13 2019-09-13 Outpatient R MARANDA [facility] [id number] Univers 12:45:00 12:45:00 SHAYY ity o f [facility] 2019-09-13 2019-09-13 Telephone RenecarlosRUST 1.2.840.114 [id number] Univers 00:00:00 00:00:00 Shayy C OPERATIONAL COMMUNICATION CHIEF 350.1.13.10 ity of [facility] 4.2.7.2.686 [place] as MATERNAL [phone] Med ical & CHILD [address] [place] [address] 2019-09-09 2019-09-09 Outpatient R [facility] [id number] Univers 10:30:00 10:30:00 ity of [facility] 2019-09-09 2019-09-09 General Maintenance [facility] 1.2.840. 114 [id number] Univers 09:45:59 10:00:59 Visit Shayy Low OPERATIONAL COMMUNICATION CHIEF 350.1.13. 10 ity of [facility] 4.2.7.2.686 [place] as MATERNAL [phone] Med ical & CHILD [address] [place] [address] 2019-09-07 2019-09-07 Routine RenecarlosRUST 1.2.255.413 [id number] Univers 09:05:30 11:54:18 Shayy C OPERATIONAL COMMUNICATION CHIEF 350.1.13.10 ity of Visit REGIONAL 4.2.7.2.686 [place] as MATERNAL [id number] [facility] ica & CHILD [address] [place] [address] 2019-09-07 2019-09-07 [facility] [id number] Univers 09:15:00 09:15:00 SHAYY ity o f [facility] 2019-08-24 2019-08-24 Hospital VALENTÍN Syed 1.2.840.114 [id number] Univers 14:23:00 16:41:00 Encounter Kal DUARTE 350.1.13.10 ity of [facility] 4.2.7.2.686 [place] as [phone] [address] 2019-08-24 2019-08-24 Telemedici MarandaRUST 1.2.840.114 [id number] Univers 07:49:03 10:22:58 ne Visit Shayy C OPERATIONAL COMMUNICATION CHIEF 350.1.13.10 ity of REG[facility]AL 4.2.7.2.686 [place] as MATERNAL [id number] [facility] & [address] 2019-08-24 2019-08-24 Outpatient R AKINSIPE, [facility] [id number] Univers 09:00:00 09:00:00 SHAYY ity o f [facility] 2019-08-23 2019-08-23 Outpatient R AKINSIPE, [facility] [id number] Univers 09:00:00 09:00:00 SHAYY ity o f [facility] 2019-08-09 2019-08-09 Outpatient R AKINSIPE, [facility] [id number] Univers 09:30:00 09:30:00 SHAYY ity o f [facility] 2019-08-08 2019-08-08 Telemedici [facility] 1.2.840.114 [id number] Univers 08:42:53 10:22:33 ne Visit Shayy C OPERATIONAL COMMUNICATION CHIEF 350.1.13.10 ity of [facility] 4.2.7.2.686 [place] as MATERNAL [id number] [address] 2019-08-08 2019-08-08 Outpatient R AKINSIPE, [facility] [id number] Univers 09:00:00 09:00:00 SHAYY ity o f [facility] 2019-07-26 2019-07-26 Routine [facility] 1.2.377.557 [id number] Univers 12:45:15 13:39:58 Shayy C OPERATIONAL COMMUNICATION CHIEF 350.1.13.10 ity of Visit REGIONAL 4.2.7.2.686 [place] as MATERNAL [id number] [facility] & [address] 2019-07-26 2019-07-26 Outpatient R AKINSIPE, [facility] [id number] Univers 12:45:00 12:45:00 SHAYY ity o f [facility] 2019-07-26 2019-07-26 Deny LAURA 1.2.840.114 [id number] Univers 00:00:00 00:00:00 Only Unassigned, FELICIA 350.1.13.10 ity of [place] [facility] 4.2.7.2.686 [place] as [phone] [address] 2019-07-12 2019-07-12 Telephone [facility] 1.2.840.114 [id number] Univers 00:00:00 00:00:00 Shayy C OPERATIONAL COMMUNICATION CHIEF 350.1.13.10 ity of [facility] 4.2.7.2.686 [place] as MATERNAL [phone] [facility] ical & CHILD [address] [place] [address] 2019-07-11 2019-07-11 Routine [facility] 1.2.439.087 [id number] Univers 08:58:08 10:35:52 Shayy Hopkins OPERATIONAL COMMUNICATION CHIEF 350.1.13.10 ity of Visit [facility] 4.2.7.2.686 [place] as MATERNAL [phone] [address] 2019-07-11 2019-07-11 Outpatient R [facility] [id number] Univers 08:45:00 08:45:00 SHAYY ity o f [facility] 2019-06-23 2019-06-23 Routine [facility] 1.2.999.682 [id number] Univers 08:37:05 09:19:24 Rona N OPERATIONAL COMMUNICATION CHIEF 350.1.13.10 i ty of Visit [facility] 4.2.7.2.686 [place] as MATERNAL [id number] [facility] & CHILD [address] [place] [address] 2019-06-22 2019-06-22 Telephone [facility] 1.2.840.114 [id number] Univers 00:00:00 00:00:00 Rona N OPERATIONAL COMMUNICATION CHIEF 350.1.13.10 it y of [facility] 4.2.7.2.686 [place] as MATERNAL [id number] [facility] & CHILD [address] [place] [address] 2019-06-15 2019-06-15 Telephone [facility] 1.2.840.114 [id number] Univers 00:00:00 00:00:00 Rona N OPERATIONAL COMMUNICATION CHIEF 350.1.13.10 it y of [facility] 4.2.7.2.686 [place] as MATERNAL [phone] Med ical & CHILD 107 [facility] 2019-05-27 2019-05-27 Abstract Maranda, AKTOSHA 1.2.840.114 [id number] Univers 00:00:00 00:00:00 Shayy Hopkins OPERATIONAL COMMUNICATION CHIEF 350.1.13.10 ity of [facility] 4.2.7.2.686 [place] as MATERNAL [phone] Med ical & CHILD [address] [place] [address] 2019-03-16 2019-03-16 Orders Doctor VALENTÍN 1.2.840.114 [id number] Univers 00:00:00 00:00:00 Only Unassigned, FELICIA 350.1.13.10 ity of [place] [facility] 4.2.7.2.686 [place] as [phone] [address] Results Test Description Test Time Test Comments Results Result Comments Source POCT TEST 2019-11-17 14:00:00 Test Item Value Reference Range Interpretation Comme nts POCT PREG (test code = 1605) Negative On board controls acceptable with C Line (test code = 3574) Yes POCT PREG LOT # (test code = 3575) PO[facility] P[facility] TEST DATE (test code = 3576) [id number] 14:00:00 Test Item Value Reference Range Interpretation Comments POCT PREG (test code = 1605) Negative On board controls acceptable with C Yes Line (test code = 3574) POCT PREG LOT # (test code = 3575) POCT PREG TEST DATE (test code = 3576) [facility] [id number] 14:00:00 Test Item Value Reference Range Interpretation Comments POCT PREG (test code = 1605) Negative On board controls acceptable with C Yes Line (test code = 3574) POCT PREG LOT # (test code = 3575) POCT PREG TEST DATE (test code = 3576) [facility] [id number] 14:00:00 Test Item Value Reference Range Interpretation Comments POCT PREG (test code = 1605) Negative On board controls acceptable with C Yes Line (test code = 3574) POCT PREG LOT # (test code = 3575) POCT PREG TEST DATE (test code = 3576) [facility] [id number] 14:00:00 Test Item Value Reference Range Interpretation Comments POCT PREG (test code = 1605) Negative On board controls acceptable with C Yes Line (test code = 3574) POCT PREG LOT # (test code = 3575) POCT PREG TEST DATE (test code = 3576) [facility] [id number] 14:00:00 Test Item Value Reference Range Interpretation Comments POCT PREG (test code = 1605) Negative On board controls acceptable with C Yes Line (test code = 3574) POCT PREG LOT # (test code = 3575) POCT PREG TEST DATE (test code = 3576) [facility] [id number] 14:00:00 Test Item Value Reference Range Interpretation Comments POCT PREG (test code = 1605) Negative On board controls acceptable with C Yes Line (test code = 3574) POCT PREG LOT # (test code = 3575) POCT PREG TEST DATE (test code = 3576) [facility] [id number] 14:00:00 Test Item Value Reference Range Interpretation Comments POCT PREG (test code = 1605) Negative On board controls acceptable with C Yes Line (test code = 3574) POCT PREG LOT # (test code = 3575) POCT PREG TEST DATE (test code = 3576) [facility] [id number] 15:36:00 Test Item Value Reference Range Interpretation Comments POCT PREG (test code = 1605) Negative On board controls acceptable with C Yes Line (test code = 3574) POCT PREG LOT # (test code = 3575) POCT PREG TEST DATE (test code = 3576) [facility] WITH [id number] 08:55:00 Test Item Value Reference Range Interpretation Comments WBC (test code = See_Comment H [Automated 6690-2) message] The sy stem which generated this result transmitted reference range : 4.30 - 11.10 10*3/?L. The reference range was not used to interpret this result as normal/abnormal . RBC (test code = See_Comment L [Automated 789-8) message] The sy stem which generated this result transmitted reference range : 3.93 - 5.25 10*6/?L. The reference range was not used to interpret this result as normal/abnormal . HGB (test code = 9.8 g/dL 11.6-15 L 718-7) HCT (test code = 33.2 % 35.7-45.2 L 4544-3) MCV (test code = 87.6 fL 80.6-95.5 787-2) MCH (test code = 25.9 pg 25.9-32.8 785-6) MCHC (test code = 29.5 g/dL 31.6-35.1 L 786-4) RDW-SD (test code = 55.4 fL 39-49.9 H 28147-6) RDW-CV (test code = 17.7 % 12-15.5 H 788-0) PLT (test code = See_Comment [Automated 777-3) message] The sy stem which generated this result transmitted reference range : 166 - 358 10*3/ ?L. The reference r [place] was not used to interpret this result as normal/abnormal . MPV (test code = 10.4 fL 9.5-12.9 89895-4) NRBC/100 WBC (test See_Comment [Automat ed code = 3994442830) message] The system which generated this result transmitted reference range : 0.0 - 10.0 /100 WBCs. The refer ence range was not u sed to interpret th is result as normal/abnormal . NRBC x10^3 (test code <0.01 See_Comment [Auto mated = 3870016113) message] The s ystem which generated this result transmitted reference range : 10*3/?L. The reference range was not used to interpret this result as normal/abnormal . GRAN MAT (NEUT) % 74.0 % (test code = 770-8) IMM GRAN % (test code 0.40 % = 0572176135) LYMPH % (test code = 14.5 % 736-9) MONO % (test code = 9.7 % 5905-5) EOS % (test code = 1.2 % 713-8) BASO % (test code = 0.2 % 706-2) GRAN MAT x10^3(ANC) 8.26 10*3/uL 1.88-7.09 H (test code = 2696535172) IMM GRAN x10^3 (test 0.05 10*3/uL 0-0.06 code = 6753468907) LYMPH x10^3 (test code 1.62 10*3/uL 1.32-3.29 = 731-0) MONO x10^3 (test code 1.08 10*3/uL 0.33-0.92 H = 742-7) EOS x10^3 (test code = 0.13 10*3/uL 0.03-0.39 711-2) BASO x10^3 (test code <0.03 0.01-0.07 = 704-7) Lab Interpretation Abnormal (test code = 95603-3) [facility] - SYPHILIS [id number] 13:52:00 Test Item Value Reference Range Interpretation Comments Syphilis IgG/IgM (test Non-reactive Non-reactive code = 25336-3) LENNY (test code = LENNY) Non-reactive - No serologic evidence of T. pallidum infection. Cannot exclude incubating or early syphilis. Submit a second specimen in 2-4 weeks if syphilis is clinically suspected. Equivocal - Further testing to follow. Reactive - Further testing to follow. Lab Interpretation (test Normal code = 52817-1) [facility] Worth[facility] (D) IMMUNE [id number] 10:06:34 Test Item Value Reference Range Interpretation Comments RHIG CANDIDATE? No- see comment Patient i s not a (test code = candidate for R [facility]- 5055) Patient is Rh Positive.Perfor med at [facility] Laboratory Services - [facility] Blood [address] [place] [address]Kyhh Free: [phone] A No. [id number] [facility] Fort WorthArterial Cord [id number] 07:15:00 Test Item Value Reference Range Interpretation Comments BASE EXCESS, CORD (test mEq/L code = 1961550335) AC PH, CORD (BEAKER) 7.18-7.38 (test code = 0410628047) PC02, CORD (test code = See_Comment [Au tomated message] 2837941098) The system whic h generated this result transmitted ref erence range: 32 - 66 mmHg. The reference r [place] was not used to interpret this result as normal/abnor mal. PO2, CORD (test code = <10 See_Comment L [Aut omated message] 9235535963) The system whic h generated this result transmitted ref erence range: 10 - 30 mmHg. The reference r [place] was not used to interpret this result as normal/abnor mal. BICARBONATE, CORD (test See_Comment [Au tomated message] code = 2722426996) The syste m which generated this result transmitted ref erence range: 17 - 27 mEq/L. The reference r [place] was not used to interpret this result as normal/abnor mal. Lab Interpretation (test Abnormal code = 92309-6) [facility] Worth[facility]ous Cord [id number] 07:15:00 Test Item Value Reference Range Interpretation Comments VENOUS BASE EXCESS, CORD mEq/L (test code = 0817763267) VENOUS PH, CORD (test 7.25-7.45 code = 6450173961) VENOUS PC02, CORD (test See_Comment H [Au tomated message] code = 7323295227) The syste m which generated this result transmitted ref erence range: 27 - 49 mmHg. The reference r [place] was not used to interpret this result as normal/abnor mal. VENOUS PO2, CORD (test See_Comment L [Aut omated message] code = 9110174707) The syste m which generated this result transmitted ref erence range: 17 - 41 mmHg. The reference r [place] was not used to interpret this result as normal/abnor mal. VENOUS BICARBONATE, CORD See_Comment [A utomated message] (test code = 9045702826) The system which generated this result transmitted ref erence range: 12 - 29 mEq/L. The reference r [place] was not used to interpret this result as normal/abnor mal. Lab Interpretation (test Abnormal code = 58171-8) [facility] Fort WorthType and Screen - ONCE [id number] 05:56:24 Test Item Value Reference Range Interpretation Comments ABO & RH (test code O POSITIVE Performe d at [facility] = 20) Laboratory Serv [facility]3 [address] [facility] s [address]Heyz Free: [phone] A No. [id number] IAT (test code = Negative Performed a t [facility] 1185) Laboratory Serv [facility] Blood [facility]3 01 [facility] s [address]Slni Free: [phone] A No. [id number] [facility] Fort WorthHepatitis B Surface [id number] 05:40:00 Test Item Value Reference Range Interpretation Comments HBsAg Semi-Quantitative (test code = Negative Negative 5195-3) [facility] Worth[facility] WITH [id number] 04:40:00 Test Item Value Reference Range Interpretation Comments WBC (test code = See_Comment H [Automated 6690-2) message] The sy stem which generated this result transmitted reference range : 4.30 - 11.10 10*3/?L. The reference range was not used to interpret this result as normal/abnormal . RBC (test code = See_Comment [Automated 789-8) message] The sy stem which generated this result transmitted reference range : 3.93 - 5.25 10*6/?L. The reference range was not used to interpret this result as normal/abnormal . HGB (test code = 10.1 g/dL 11.6-15 L 718-7) HCT (test code = 34.4 % 35.7-45.2 L 4544-3) MCV (test code = 86.6 fL 80.6-95.5 787-2) MCH (test code = 25.4 pg 25.9-32.8 L 785-6) MCHC (test code = 29.4 g/dL 31.6-35.1 L 786-4) RDW-SD (test code = 55.2 fL 39-49.9 H 11428-9) RDW-CV (test code = 17.8 % 12-15.5 H 788-0) PLT (test code = See_Comment [Automated 777-3) message] The sy stem which generated this result transmitted reference range : 166 - 358 10*3/ ?L. The reference r [place] was not used to interpret this result as normal/abnormal . MPV (test code = 10.9 fL 9.5-12.9 50285-3) NRBC/100 WBC (test See_Comment [Automat ed code = [id number]) message] The system which generated this result transmitted reference range : 0.0 - 10.0 /100 WBCs. The refer ence range was not u sed to interpret th is result as normal/abnormal . NRBC x10^3 (test code <0.01 See_Comment [Auto mated = [id number]) message] The s ystem which generated this result transmitted reference range : 10*3/?L. The reference range was not used to interpret this result as normal/abnormal . GRAN MAT (NEUT) % 77.1 % (test code = 770-8) IMM GRAN % (test code 0.50 % = 2579740829) LYMPH % (test code = 13.2 % 736-9) MONO % (test code = 7.4 % 5905-5) EOS % (test code = 1.6 % 713-8) BASO % (test code = 0.2 % 706-2) GRAN MAT x10^3(ANC) 9.36 10*3/uL 1.88-7.09 H (test code = 6732397276) IMM GRAN x10^3 (test 0.06 10*3/uL 0-0.06 code = 5228584137) LYMPH x10^3 (test code 1.60 10*3/uL 1.32-3.29 = 731-0) MONO x10^3 (test code 0.90 10*3/uL 0.33-0.92 = 742-7) EOS x10^3 (test code = 0.20 10*3/uL 0.03-0.39 711-2) BASO x10^3 (test code <0.03 0.01-0.07 = 704-7) Lab Interpretation Abnormal (test code = 48815-6) [facility]2019-10-03 03:12:00 Test Item Value Reference Range Interpretation Comments SARS-CoV-2 Rapid ID NOW Not Detected Not Detected (test code = 30644-7) LENNY (test code = LENNY) ID NOW COVID-19 Assay is an isothermal nucleic acid amplification test intended for the qualitative detection of nucleic acid from SARS-CoV-2 viral RNA in nasopharyngeal (PERSONNEL SECURITY SPECIALIST) specimens. It is used under Emergency Use Authorization (EUA) by FDA. The limit of detection (LOD) of the assay is 125 Genome Equivalents/mL. A positive result is indicative of the presence of SARS-CoV-2 RNA. ?Clinical correlation with patient history and other diagnostic information is necessary to determine patient infection status. A negative (Not Detected) result does not preclude SARS-CoV-2 infection. In patients with clinical symptoms and other tests that are consistent with SARS-CoV-2 infection, negative results should be treated as presumptive negative and a new specimen should be tested with alternative PCR molecular test. Invalid: Please collect a new specimen for repeat patient testing if clinically indicated. Lab Interpretation Normal (test code = 56869-0) [facility] URINALYSIS W SPECIFIC [id number] 20:13:00 Test Item Value Reference Range Interpretation Comments POCT U SP GRAV (test code = . 1.005-1.025 3255) POCT PH U (test code = 3254) . 5-8 POCT U LEUK EST (test code = . Negative - Negative 3263) POCT U NIT (test code = 3262) . Negative - Negative POCT U PROT (test code = 3259) trace Negative - Negative POCT U GLU (test code = 3256) negative Negative - Negative POCT U KETONE (test code = 3258) . Negative - Negative POCT U UROBILI (test code = . 0.2-1 3260) POCT U BILI (test code = 3261) . Negative - Negative POCT U BLD (test code = 3257) . Negative - Negative POCT U COLOR (test code = 3266) POCT U APPEAR (test code = 3267) [facility] URINALYSIS W SPECIFIC [id number] 19:50:00 Test Item Value Reference Range Interpretation Comments POCT U SP GRAV (test code = 3255) . 1.005-1.025 POCT PH U (test code = 3254) . 5-8 POCT U LEUK EST (test code = 3263) . Negative - Negative POCT U NIT (test code = 3262) . Negative - Negative POCT U PROT (test code = 3259) Trace Negative - Negative POCT U GLU (test code = 3256) Neg Negative - Negative POCT U KETONE (test code = 3258) . Negative - Negative POCT U UROBILI (test code = 3260) . 0.2-1 POCT U BILI (test code = 3261) . Negative - Negative POCT U BLD (test code = 3257) . Negative - Negative POCT U COLOR (test code = 3266) POCT U APPEAR (test code = 3267) [facility] NON[facility]STRESS [id number] 19:34:47NST: cat 1, reactive/reassuring, no ctx, +accels, neg decls, moderate variability [facility] URINALYSIS W SPECIFIC [id number] 18:10:00 Test Item Value Reference Range Interpretation Comments POCT U SP GRAV (test code = 3255) . 1.005-1.025 POCT PH U (test code = 3254) . 5-8 POCT U LEUK EST (test code = 3263) . Negative - Negative POCT U NIT (test code = 3262) . Negative - Negative POCT U PROT (test code = 3259) Trace Negative - Negative POCT U GLU (test code = 3256) Neg Negative - Negative POCT U KETONE (test code = 3258) . Negative - Negative POCT U UROBILI (test code = 3260) . 0.2-1 POCT U BILI (test code = 3261) . Negative - Negative POCT U BLD (test code = 3257) . Negative - Negative POCT U COLOR (test code = 3266) POCT U APPEAR (test code = 3267) [facility] URINALYSIS W SPECIFIC [id number] 14:34:00 Test Item Value Reference Range Interpretation Comments POCT U SP GRAV (test code = 3255) . 1.005-1.025 POCT PH U (test code = 3254) . 5-8 POCT U LEUK EST (test code = 3263) . Negative - Negative POCT U NIT (test code = 3262) . Negative - Negative POCT U PROT (test code = 3259) Trace Negative - Negative POCT U GLU (test code = 3256) Neg Negative - Negative POCT U KETONE (test code = 3258) . Negative - Negative POCT U UROBILI (test code = 3260) . 0.2-1 POCT U BILI (test code = 3261) . Negative - Negative POCT U BLD (test code = 3257) . Negative - Negative POCT U COLOR (test code = 3266) POCT U APPEAR (test code = 3267) [facility] URINALYSIS W SPECIFIC [id number] 14:34:00 Test Item Value Reference Range Interpretation Comments POCT U SP GRAV (test code = 3255) . 1.005-1.025 POCT PH U (test code = 3254) . 5-8 POCT U LEUK EST (test code = 3263) . Negative - Negative POCT U NIT (test code = 3262) . Negative - Negative POCT U PROT (test code = 3259) Trace Negative - Negative POCT U GLU (test code = 3256) Neg Negative - Negative POCT U KETONE (test code = 3258) . Negative - Negative POCT U UROBILI (test code = 3260) . 0.2-1 POCT U BILI (test code = 3261) . Negative - Negative POCT U BLD (test code = 3257) . Negative - Negative POCT U COLOR (test code = 3266) POCT U APPEAR (test code = 3267) [facility] URINALYSIS W SPECIFIC [id number] 14:34:00 Test Item Value Reference Range Interpretation Comments POCT U SP GRAV (test code = 3255) . 1.005-1.025 POCT PH U (test code = 3254) . 5-8 POCT U LEUK EST (test code = 3263) . Negative - Negative POCT U NIT (test code = 3262) . Negative - Negative POCT U PROT (test code = 3259) Trace Negative - Negative POCT U GLU (test code = 3256) Neg Negative - Negative POCT U KETONE (test code = 3258) . Negative - Negative POCT U UROBILI (test code = 3260) . 0.2-1 POCT U BILI (test code = 3261) . Negative - Negative POCT U BLD (test code = 3257) . Negative - Negative POCT U COLOR (test code = 3266) POCT U APPEAR (test code = 3267) [facility] [id number] 20:57:00 Test Item Value Reference Range Interpretation Comments SARS-CoV-2 (test code = Not Detected Not Detected 87816-4) LENNY (test code = LENNY) ID NOW COVID-19 Assay is an isothermal nucleic acid amplification test intended for the qualitative detection of nucleic acid from SARS-CoV-2 viral RNA in nasopharyngeal (PERSONNEL SECURITY SPECIALIST) specimens. It is used under Emergency Use Authorization (EUA) by FDA. The limit of detection (LOD) of the assay is 125 Genome Equivalents/mL. A positive result is indicative of the presence of SARS-CoV-2 RNA. ?Clinical correlation with patient history and other diagnostic information is necessary to determine patient infection status. A negative (Not Detected) result does not preclude SARS-CoV-2 infection. Clinical correlation with patient history and other diagnostic information should be used in patient management decisions. Invalid: Please collect a new specimen for repeat patient testing if clinically indicated. Lab Interpretation Normal (test code = 43702-7) [facility] URINALYSIS W SPECIFIC [id number] 18:10:00 Test Item Value Reference Range Interpretation Comments POCT U SP GRAV (test code = 3255) . 1.005-1.025 POCT PH U (test code = 3254) . 5-8 POCT U LEUK EST (test code = 3263) . Negative - Negative POCT U NIT (test code = 3262) . Negative - Negative POCT U PROT (test code = 3259) Trace Negative - Negative POCT U GLU (test code = 3256) Neg Negative - Negative POCT U KETONE (test code = 3258) . Negative - Negative POCT U UROBILI (test code = 3260) . 0.2-1 POCT U BILI (test code = 3261) . Negative - Negative POCT U BLD (test code = 3257) . Negative - Negative POCT U COLOR (test code = 3266) POCT U APPEAR (test code = 3267) [facility] URINALYSIS W SPECIFIC [id number] 15:33:00 Test Item Value Reference Range Interpretation Comments POCT U SP GRAV (test code = 3255) . 1.005-1.025 POCT PH U (test code = 3254) . 5-8 POCT U LEUK EST (test code = 3263) . Negative - Negative POCT U NIT (test code = 3262) . Negative - Negative POCT U PROT (test code = 3259) Trace Negative - Negative POCT U GLU (test code = 3256) Neg Negative - Negative POCT U KETONE (test code = 3258) . Negative - Negative POCT U UROBILI (test code = 3260) . 0.2-1 POCT U BILI (test code = 3261) . Negative - Negative POCT U BLD (test code = 3257) . Negative - Negative POCT U COLOR (test code = 3266) . POCT U APPEAR (test code = 3267) [facility] URINALYSIS W SPECIFIC [id number] 15:33:00 Test Item Value Reference Range Interpretation Comments POCT U SP GRAV (test code = 3255) . 1.005-1.025 POCT PH U (test code = 3254) . 5-8 POCT U LEUK EST (test code = 3263) . Negative - Negative POCT U NIT (test code = 3262) . Negative - Negative POCT U PROT (test code = 3259) Trace Negative - Negative POCT U GLU (test code = 3256) Neg Negative - Negative POCT U KETONE (test code = 3258) . Negative - Negative POCT U UROBILI (test code = 3260) . 0.2-1 POCT U BILI (test code = 3261) . Negative - Negative POCT U BLD (test code = 3257) . Negative - Negative POCT U COLOR (test code = 3266) . POCT U APPEAR (test code = 3267) [facility] URINALYSIS W SPECIFIC [id number] 15:09:00 Test Item Value Reference Range Interpretation Comments POCT U SP GRAV (test code = . 1.005-1.025 A 3255) POCT PH U (test code = 3254) 7 mg/dl 5-8 POCT U LEUK EST (test code = trace Negative - Negative 3263) POCT U NIT (test code = 3262) neg Negative - Negative POCT U PROT (test code = 3259) trace Negative - Negative POCT U GLU (test code = 3256) neg Negative - Negative POCT U KETONE (test code = 3258) neg Negative - Negative POCT U UROBILI (test code = neg 0.2-1 3260) POCT U BILI (test code = 3261) neg Negative - Negative POCT U BLD (test code = 3257) trace Negative - Negative POCT U COLOR (test code = 3266) POCT U APPEAR (test code = 3267) Lab Interpretation (test code = Abnormal 75456-9) [facility] Notes Date/Time Note Provider Source 2023-01-17 [facility] 16:38:14-00:00 Pt discharged with diagnosis of rash. Printed and verbal instructions reviewed with and given to patient. Prescriptions given x 1. Pt verbalized understanding of teaching, medications, and recommended f ollow-up. Denies questions o r concerns at this time. Pt ambulatory at discharge. Appears in no apparent distress. No ataxia noted. Accompanied by . 2023-01-17 Formatting of this note might be differe nt from the original. Lulu Chaidez RN [facility] 15:35:39-00:00 Pt c/o rash hands, arms, leg s, abdomen, face for 3 weeks. Reports joint pain starting this morning. Has tried Hydrocortisone, Calamine, Benadryl without relief.
[2023-01-22] MEDS ORDERED: KETOROLAC 30 MG/ML INJ ONE (12:45)
[2023-01-22] MEDS ORDERED: NA CHLORIDE 0.9% 1,000 ML ONE (12:45)
[2023-01-22 12:58] LABS: Hematocrit 41.3 % (36.0-45.0); Lymphocytes % 16.9 % (15.3-44.8); MCV 90.8 fL (80-100); MPV 8.7 fL (7.6-11.3); Platelets 200 thou/uL (152-406); RBC Red Blood Cell Count 4.54 M/uL (3.86-4.86)
[2023-01-22 13:17] LABS: Albumin 3.8 g/dL (3.4-5.0); Bilirubin Direct 0.1 mg/dL (0-0.2); Bilirubin Indirect, Calculated 0.3 mg/dL (0.2-0.8); Bilirubin Total 0.4 mg/dL (0.2-1.0); Magnesium 2.1 mg/dL (1.6-2.4); Potassium 3.8 mEq/L (3.5-5.1); Protein, Total 7.2 g/dL (6.4-8.2)
--- NOTE | 2023-01-22 13:35 | RAD REPORT ---
EXAM DESCRIPTION: RAD - Chest Single View - 01/22/2023 1:30 pm CLINICAL HISTORY: DYSPNEA Chest pain. COMPARISON: Chest Single View dated 03/01/2017; Chest Single View dated 07/14/2016; CHEST SINGLE VIEW dated 10/30/2013 FINDINGS: Portable technique limits examination quality. The lungs are grossly clear. The heart is normal in size. No displaced fractures. IMPRESSION: No acute intrathoracic process suspected.
--- NOTE | 2023-01-22 14:12 | EDPHYS ---
Physician Documentation [facility] Name: Susana Agarwal Age: 22 yrs Sex: Female : 2000 Arrival Date: 01/22/2023 Time: 11:27 Bed 7 Private MD: ED Physician Rey Jose HPI: 01/22 12:09 This 22 yrs old Female presents to ER via Ambulatory with complaints of Rash, Body rt aches. 12:09 Patient presents to the ED with rash for 1 month. Patient states that she developed rt over the past 24 hours, body aches, left-sided pain as well as a headache. She does report a difficulty breathing. She denies other acute complaints at this time. Symptoms are moderate severity, no other aggravating alleviating factors.. 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 - Social history:: Smoking status: Patient denies any tobacco usage or history of. ROS: 12:13 Constitutional: Negative for fever, chills, and weight loss, Cardiovascular: Negative rt for chest pain, palpitations, and edema, Abdomen/GI: Negative for abdominal pain, nausea, vomiting, diarrhea, and constipation, Neuro: Negative for headache, weakness, numbness, tingling, and seizure, Psych: Negative for depression, anxiety, suicide ideation, homicidal ideation, and hallucinations. 12:13 Constitutional: Positive for body aches, malaise. 12:13 Respiratory: Positive for shortness of breath, Negative for cough. 12:13 Skin: Positive for rash. 12:13 Neuro: Positive for headache, Negative for altered mental status. rt Exam: 12:13 Constitutional: This is a well developed, well nourished patient who is awake, alert, rt and in no acute distress. Head/Face: Normocephalic, atraumatic. Neck: Trachea midline, no thyromegaly or masses palpated, and no cervical lymphadenopathy. Supple, full range of motion without nuchal rigidity, or vertebral point tenderness. No Meningismus. Chest/axilla: Normal chest wall appearance and motion. Nontender with no deformity. No lesions are appreciated. Cardiovascular: Regular rate and rhythm with a normal S1 and S2. No gallops, murmurs, or rubs. Normal PMI, no JVD. No pulse deficits. Respiratory: Lungs have equal breath sounds bilaterally, clear to auscultation and percussion. No rales, rhonchi or wheezes noted. No increased work of breathing, no retractions or nasal flaring. Abdomen/GI: Soft, non-tender, with normal bowel sounds. No distension or tympany. No guarding or rebound. No evidence of tenderness throughout. MS/ Extremity: Pulses equal, no cyanosis. Neurovascular intact. Full, normal range of motion. Neuro: Awake and alert, GCS 15, oriented to person, place, time, and situation. Cranial nerves II-XII grossly intact. Motor strength 5/5 in all extremities. Sensory grossly intact. Cerebellar exam normal. Normal gait. Psych: Awake, alert, with orientation to person, place and time. Behavior, mood, and affect are within normal limits. 12:13 Skin: Small scabs noted on bilateral arms, no surrounding erythema, no abscesses. 13:32 ECG was reviewed by the Attending Physician. rt Vital Signs: 11:43 BP 122 / 84; Pulse 78; Resp 16; Temp 98.2; Pulse Ox 99% ; ko1 12:50 BP 110 / 77; Pulse 65; Resp 18; Pulse Ox 100% on R/A; ld1 14:06 BP 102 / 66; Pulse 68; Resp 18; Pulse Ox 98% on R/A; ld1 MDM: 11:51 Patient medically screened. rt 15:52 Differential diagnosis: Viral syndrome, dermatitis, POTS, dysrhythmia, anemia. Data rt reviewed: vital signs, nurses notes, lab test result(s), EKG. Consideration of Admission/Observation Escalation of care including admission/observation considered. I considered the following discharge prescriptions or medication management in the emergency department Medications were administered in the Emergency Department. See MAR. Test considered but Not performed: CT: Low suspicion for pulmonary embolism, CT angiogram not indicated. Counseling: I had a detailed discussion with the patient and/or guardian regarding the historical points, exam findings, and any diagnostic results supporting the discharge/admit diagnosis, lab results, radiology results, the need for outpatient follow up. Response to treatment: the patient's symptoms have mildly improved after treatment. 01/22 11:52 Order name: Basic Metabolic Panel; Complete Time: 13:32 rt 01/22 11:52 Order name: CBC with Diff; Complete Time: 13:32 rt 01/22 11:52 Order name: LFT's; Complete Time: 13:32 rt 01/22 11:52 Order name: Magnesium; Complete Time: 13:32 rt 01/22 11:52 Order name: Troponin HS; Complete Time: 13:32 rt 01/22 11:52 Order name: Test, Serum; Complete Time: 13:32 rt 01/22 11:52 Order name: XRAY Chest (1 view); Complete Time: 13:35 rt 01/22 11:52 Order name: Cardiac monitoring; Complete Time: 12:38 rt 01/22 11:52 Order name: EKG - Nurse/Tech; Complete Time: 12:58 rt 01/22 11:52 Order name: IV Saline Lock; Complete Time: 12:49 rt 01/22 11:52 Order name: Labs collected and sent; Complete Time: 12:49 rt 01/22 11:52 Order name: O2 Per Protocol; Complete Time: 12:30 rt 01/22 11:52 Order name: O2 Sat Monitoring; Complete Time: 12:30 rt EC:32 Rate is 70 beats/min. Rhythm is regular, Normal Sinus Rhythm with No ectopy. QRS [place] rt is Normal. [place] interval is normal. QRS interval is normal. QT interval is normal. No Q waves. T waves are Normal. No ST changes noted. Administered Medications: 12:49 Drug: NS 0.9% IV 1000 ml Route: IV; Rate: 1 bolus; Site: right antecubital; ld1 13:45 Drug: Ketorolac IVP 15 mg Route: IVP; Site: right antecubital; ld1 Disposition Summary: 01/22/23 14:12 Discharge Ordered Location: Home rt Problem: new rt Symptoms: are unchanged rt Condition: Stable rt Diagnosis - Rash and other nonspecific skin eruption rt - Headache rt - Dyspnea rt Followup: rt - With: Troy Grant MD - When: 2 - 3 days - Reason: Discharge Instructions: - Discharge Summary Sheet rt - General Headache Without Cause rt - Postural Orthostatic Tachycardia Syndrome rt - Rash, Adult rt Forms: - Medication Reconciliation Form rt - Thank You Letter rt - Antibiotic Education rt - Prescription Opioid Use rt - Patient Portal Instructions rt - Leadership Thank You Letter rt Prescriptions: - Reglan 10 mg Oral Tablet - take 1 tablet by ORAL route every 6 hours; 15 tablet; Refills: 0, Product rt Selection Permitted Signatures: Dispatcher [employer] EDLilibeth Ramirez RN RN ld1 Lisa Desouza RN RN ko1 Rey Jose MD MD rt Corrections: (The following items were deleted from the chart) 11:46 11:45 Allergies: Iodine; ko1 ko1
--- NOTE | 2023-01-22 14:12 | ER ---
Nurse's Notes [facility] Name: Susana Agarwal Age: 22 yrs Sex: Female : 2000 Arrival Date: 01/22/2023 Time: 11:27 Bed 7 Private MD: Diagnosis: Rash and other nonspecific skin eruption;Headache;Dyspnea Presentation: 01/22 11:43 Chief complaint: Patient states: Seen Thursday in [place] for rash and was given ko1 steroids, not helping. Yesterday had pain to the left side of the face, today I have a horrible headache and my whole body hurts. Coronavirus screen: At this time, the client does not indicate any symptoms associated with coronavirus-19. Ebola Screen: No symptoms or risks identified at this time. Initial Sepsis Screen: Does the patient meet any 2 criteria? No. Patient's initial sepsis screen is negative. Does the patient have a suspected source of infection? No. Patient's initial sepsis screen is negative. Risk Assessment: Do you want to hurt yourself or someone else? Patient reports no desire to harm self or others. Onset of symptoms is unknown. 11:43 Method Of Arrival: Ambulatory ko1 11:43 Acuity: JAYDON 4 ko1 Triage Assessment: 11:45 General: Appears in no apparent distress. Behavior is calm, cooperative, appropriate ko1 for age. Pain: Complains of pain in generalized. 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 - Social history:: Smoking status: Patient denies any tobacco usage or history of. Screenin:50 [facility] ED Fall Risk Assessment (Adult) History of falling in the last 3 months, ld1 including since admission No falls in past 3 months (0 pts). Abuse screen: Denies threats or abuse. Denies injuries from another. Nutritional screening: No deficits noted. Tuberculosis screening: No symptoms or risk factors identified. Assessment: 12:50 General: Appears in no apparent distress. comfortable, Behavior is calm, cooperative, ld1 appropriate for age. Pain: Denies pain. Neuro: Level of Consciousness is awake, alert, obeys commands, Oriented to person, place, time, situation. Cardiovascular: Capillary refill < 3 seconds Patient's skin is warm and dry. Respiratory: Airway is patent Respiratory effort is even, unlabored. GI: Abdomen is round non-distended. : No signs and/or symptoms were reported regarding the genitourinary system. EENT: No signs and/or symptoms were reported regarding the EENT system. Derm: No signs and/or symptoms reported regarding the dermatologic system. Musculoskeletal: No signs and/or symptoms reported regarding the musculoskeletal system. Vital Signs: 11:43 BP 122 / 84; Pulse 78; Resp 16; Temp 98.2; Pulse Ox 99% ; ko1 12:50 BP 110 / 77; Pulse 65; Resp 18; Pulse Ox 100% on R/A; ld1 14:06 BP 102 / 66; Pulse 68; Resp 18; Pulse Ox 98% on R/A; ld1 ED Course: 11:29 Patient arrived in ED. mr 11:44 Rey Jose MD is Attending Physician. rt 11:45 Triage completed. ko1 11:45 Arm band placed on left wrist. Patient placed in waiting room, Patient notified of wait ko1 time. 12:49 Lilibeth Mccray, GEO is Primary Nurse. ld1 12:49 Test, Serum Sent. ld1 12:49 No provider procedures requiring assistance completed. Inserted saline lock: 20 gauge ld1 in right antecubital area, using aseptic technique. Blood collected. 12:50 Patient has correct armband on for positive identification. Placed in gown. Bed in low ld1 position. Call light in reach. Side rails up X2. grants administrator on. Pulse ox on. NIBP on. Door closed. Noise minimized. Warm blanket given. 13:31 XRAY Chest (1 view) In Process Unspecified. EDMS 14:12 Troy Grant MD is Referral Physician. rt 14:28 IV discontinued, intact, bleeding controlled, No redness/swelling at site. ld1 Administered Medications: 12:49 Drug: NS 0.9% IV 1000 ml Route: IV; Rate: 1 bolus; Site: right antecubital; ld1 13:45 Drug: Ketorolac IVP 15 mg Route: IVP; Site: right antecubital; ld1 Medication: 12:50 VIS not applicable for this client. ld1 Outcome: 14:12 Discharge ordered by . rt 14:28 Discharged to home ambulatory. ld1 14:28 Condition: stable 14:28 Discharge instructions given to patient, Instructed on discharge instructions, follow up and referral plans. medication usage, Demonstrated understanding of instructions, follow-up care, medications, Prescriptions given X 1. 14:28 Patient left the ED. ld1 Signatures: Dispatcher [employer] [facility] Susannah BarakatLilibeth RN RN ld1 Lisa Desouza RN RN ko1 Rey Jose MD MD rt Corrections: (The following items were deleted from the chart) 11:46 11:45 Allergies: Iodine; ko1 ko1
[2023-01-22 14:48] VITALS: TEMP 98.2
[2023-01-22 14:54] VITALS: BP 102/66; O2SAT 98
== END 2023-01-22 14:28 | disposition home or self-care (01) ==
LOC: ER 11:27
DX: R21 Rash and other nonspecific skin eruption (principal); R51.9 Headache, unspecified; R06.00 Dyspnea, unspecified
CPT/HCPCS: 85025; 80048; 36415; 83735; 84703; 80076; 84484; 71045; 96374; 99285; J7030